=== PATIENT | male | born 1955 | race Caucasian/White ===

== ENCOUNTER 2022-02-22 17:35 | Inpatient (IN) | payer OTHER ==
[~2022-02-22] VITALS: Ht 180.3 cm; Wt 87.4 kg
[2022-02-22 19:56] LABS: Basophils # (auto) 0.1 10 ^3/uL (0-0.2); Basophils % (auto) 1.4 % (0.0-2.0); Eosinophils # (auto) 0.4 10 ^3/uL (0-0.8); Eosinophils % (auto) 8.3 % (0.0-7.0); Hematocrit 34.3 % (41.0-53.0); Hemoglobin 11.4 g/dL (13.5-17.5); Lymphocytes # (auto) 0.8 10 ^3/uL (0.4-5.4); Lymphocytes % (auto) 15.5 % (10.0-50.0); Mean Corpuscular Hgb Conc. 33.3 g/dL (32.0-36.0); Mean Corpuscular Volume 84.2 fL (80.0-100.0); Monocytes # (auto) 0.6 10 ^3/uL (0-1.3); Monocytes % (auto) 11.6 % (0.0-12.0); Neutrophils # (auto) 3.4 10 ^3/uL (1.6-8.6); Neutrophils % (auto) 63.2 % (37.0-80.0); Red Blood Cells 4.08 10^6/uL (4.5-5.90); Red Cell Distribution Width 17.1 % (11.8-14.3); White Blood Cell 5.3 10^3/uL (4.4-10.8)
[2022-02-22 20:12] LABS: Albumin 3.5 g/dL (3.4-5.0); Calcium 8.8 mg/dL (8.5-10.1); Potassium 3.4 mmol/L (3.5-5.1)
[2022-02-22 20:15] LABS: BUN/Creatinine Ratio 18.9; Bilirubin, Total 1.2 mg/dL (0.2-1.0); Total Protein 7.5 g/dL (6.4-8.2)
[2022-02-23] MEDS: HYDROcodone-ACET 10/325MG TAB PO PRN ×4 (02:34→23:20)
[2022-02-23 03:31] LABS: Basophils # (auto) 0.1 10 ^3/uL (0-0.2); Basophils % (auto) 1.5 % (0.0-2.0); Eosinophils # (auto) 0.3 10 ^3/uL (0-0.8); Eosinophils % (auto) 7.6 % (0.0-7.0); Hematocrit 29.5 % (41.0-53.0); Hemoglobin 10.2 g/dL (13.5-17.5); Lymphocytes # (auto) 0.8 10 ^3/uL (0.4-5.4); Lymphocytes % (auto) 19.4 % (10.0-50.0); Mean Corpuscular Hemoglobin 28.6 pg (28.0-32.0); Mean Corpuscular Hgb Conc. 34.5 g/dL (32.0-36.0); Mean Corpuscular Volume 82.9 fL (80.0-100.0); Monocytes # (auto) 0.6 10 ^3/uL (0-1.3); Monocytes % (auto) 13.1 % (0.0-12.0); Neutrophils # (auto) 2.5 10 ^3/uL (1.6-8.6); Neutrophils % (auto) 58.4 % (37.0-80.0); Nucleated Red Blood Cells % 0.1 %; Red Blood Cells 3.56 10^6/uL (4.5-5.90); Red Cell Distribution Width 17.1 % (11.8-14.3); White Blood Cell 4.2 10^3/uL (4.4-10.8)
[2022-02-23 03:47] LABS: Albumin 2.9 g/dL (3.4-5.0); BUN/Creatinine Ratio 18.9
[2022-02-23 03:50] LABS: Bilirubin, Total 1.2 mg/dL (0.2-1.0); Total Protein 6.4 g/dL (6.4-8.2)
[2022-02-23 03:54] LABS: Potassium 2.9 mmol/L (3.5-5.1)
[2022-02-23] MEDS ORDERED: POTASSIUM CHL 20 Meq TABLET PO ONE ×3 (05:00→12:45)
[2022-02-23] MEDS: ENOXAPARIN SOD 40 MG/0.4 ML SYRINGE SC SCH (10:20)
[2022-02-23] MEDS: PANTOPRAZOLE 40 MG/10 ML VIAL INJ IV SCH ×2 (11:58→23:20)
[2022-02-23 15:15] LABS: INR 1.23 (0.9-1.15); Partial Thromboplastin Time 28.9 sec (24.6-33.4)
[2022-02-23] MEDS ORDERED: HYDR12.56 PO (17:39)
[2022-02-23] MEDS ORDERED: LOSA25TA38 PO (17:40)
[2022-02-23] MEDS ORDERED: CARV3.1240 PO (17:40)
[2022-02-23] MEDS ORDERED: OMEP20TA PO (18:16)
[2022-02-23] MEDS: FUROSEMIDE 40 MG TAB PO SCH (18:18)
[2022-02-23 21:47] VITALS: BP 135/70
[2022-02-23] MEDS: POTASSIUM CHL 20 Meq TABLET PO SCH (23:21)
[2022-02-23] MEDS: CARVEDILOL 3.125 MG TAB PO SCH (23:21)
[2022-02-23 23:57] LABS: Urine Bacteria NONE SEEN /hpf (None Seen); Urine Blood Negative /uL (Negative); Urine Hyaline Cast FEW /lpf (0 - 2); Urine Mucus FEW (None Seen); Urine WBC 1 /hpf (0 - 3)
[2022-02-24 05:16] VITALS: BP 143/76
[2022-02-24] MEDS: FUROSEMIDE 40 MG TAB PO SCH ×3 (06:19→23:18)
[2022-02-24 06:25] LABS: Basophils # (auto) 0.1 10 ^3/uL (0-0.2); Basophils % (auto) 1.7 % (0.0-2.0); Eosinophils # (auto) 0.2 10 ^3/uL (0-0.8); Eosinophils % (auto) 7.5 % (0.0-7.0); Hemoglobin 10.1 g/dL (13.5-17.5); Lymphocytes # (auto) 0.7 10 ^3/uL (0.4-5.4); Lymphocytes % (auto) 19.8 % (10.0-50.0); Mean Corpuscular Hemoglobin 28.5 pg (28.0-32.0); Mean Corpuscular Hgb Conc. 33.7 g/dL (32.0-36.0); Mean Corpuscular Volume 84.4 fL (80.0-100.0); Monocytes # (auto) 0.5 10 ^3/uL (0-1.3); Neutrophils # (auto) 1.9 10 ^3/uL (1.6-8.6); Nucleated Red Blood Cells % 0.2 %; Red Blood Cells 3.56 10^6/uL (4.5-5.90); Red Cell Distribution Width 16.8 % (11.8-14.3); White Blood Cell 3.3 10^3/uL (4.4-10.8)
[2022-02-24 06:36] LABS: Albumin 2.8 g/dL (3.4-5.0); BUN/Creatinine Ratio 16.7; Calcium 8.3 mg/dL (8.5-10.1); Potassium 3.8 mmol/L (3.5-5.1)
[2022-02-24 06:42] LABS: Bilirubin, Total 0.8 mg/dL (0.2-1.0); Total Protein 6.4 g/dL (6.4-8.2)
[2022-02-24 08:38] VITALS: BP 123/76
[2022-02-24] MEDS: POTASSIUM CHL 20 Meq TABLET PO SCH ×2 (11:13→23:18)
[2022-02-24] MEDS: LOSARTAN POTASSIUM 25 MG TAB PO SCH (11:16)
[2022-02-24] MEDS: HYDROcodone-ACET 10/325MG TAB PO PRN (11:17)
[2022-02-24] MEDS: HCTZ 25 MG TAB PO SCH (11:18)
[2022-02-24] MEDS: CARVEDILOL 3.125 MG TAB PO SCH ×2 (11:19→23:19)
[2022-02-24] MEDS: PANTOPRAZOLE 40 MG/10 ML VIAL INJ IV SCH ×2 (11:20→23:19)
[2022-02-24] MEDS: ENOXAPARIN SOD 40 MG/0.4 ML SYRINGE SC SCH (11:20)
[2022-02-24] MEDS ORDERED: DEXTROSE (50%) 50ML SYRG IV PRN (12:15)
[2022-02-24 13:00] VITALS: BP 125/81
[2022-02-24] MEDS: InsuLIN REG 1unit/0.01ml Soln (100units/ml) SC SCH ×2 (17:00→23:24)
[2022-02-24 17:12] VITALS: BP 114/62
[2022-02-24] MEDS: ACCU-CHEK COMFORT CURVE STRIP VI SCH ×2 (17:12→23:17)
[2022-02-24] MEDS: ONDANSETRON HCL 4 MG/2 ML VIAL IV PRN (17:13)
[2022-02-24 21:48] VITALS: BP 129/68
[2022-02-25 05:00] VITALS: BP 119/67
[2022-02-25] MEDS: FUROSEMIDE 40 MG TAB PO SCH ×4 (06:50→22:39)
[2022-02-25 06:53] LABS: Basophils # (auto) 0.1 10 ^3/uL (0-0.2); Basophils % (auto) 1.1 % (0.0-2.0); Eosinophils # (auto) 0.4 10 ^3/uL (0-0.8); Eosinophils % (auto) 8.3 % (0.0-7.0); Hemoglobin 11.4 g/dL (13.5-17.5); Lymphocytes # (auto) 0.9 10 ^3/uL (0.4-5.4); Lymphocytes % (auto) 19.1 % (10.0-50.0); Mean Corpuscular Hemoglobin 28.4 pg (28.0-32.0); Mean Corpuscular Hgb Conc. 33.4 g/dL (32.0-36.0); Mean Corpuscular Volume 84.9 fL (80.0-100.0); Monocytes # (auto) 0.5 10 ^3/uL (0-1.3); Neutrophils # (auto) 2.7 10 ^3/uL (1.6-8.6); Neutrophils % (auto) 59.5 % (37.0-80.0); Nucleated Red Blood Cells % 0.1 %; Red Blood Cells 4.01 10^6/uL (4.5-5.90); Red Cell Distribution Width 17.3 % (11.8-14.3); White Blood Cell 4.5 10^3/uL (4.4-10.8)
[2022-02-25 07:04] LABS: Potassium 3.7 mmol/L (3.5-5.1)
[2022-02-25 07:05] LABS: Albumin 3.2 g/dL (3.4-5.0); Calcium 8.6 mg/dL (8.5-10.1)
[2022-02-25 07:12] LABS: BUN/Creatinine Ratio 17.7; Bilirubin, Total 1.2 mg/dL (0.2-1.0); Total Protein 7.1 g/dL (6.4-8.2)
[2022-02-25] MEDS: ACCU-CHEK COMFORT CURVE STRIP VI SCH ×4 (07:27→22:40)
[2022-02-25] MEDS: InsuLIN REG 1unit/0.01ml Soln (100units/ml) SC SCH ×4 (07:31→22:46)
[2022-02-25 09:37] VITALS: BP 140/75
[2022-02-25] MEDS: ENOXAPARIN SOD 40 MG/0.4 ML SYRINGE SC SCH (09:58)
[2022-02-25] MEDS: POTASSIUM CHL 20 Meq TABLET PO SCH ×2 (09:59→22:39)
[2022-02-25] MEDS: PANTOPRAZOLE 40 MG/10 ML VIAL INJ IV SCH ×2 (10:00→22:38)
[2022-02-25] MEDS: SPIRONOLACTONE 25 MG TAB PO SCH (10:00)
[2022-02-25] MEDS: HCTZ 25 MG TAB PO SCH (10:01)
[2022-02-25] MEDS: HYDROcodone-ACET 10/325MG TAB PO PRN ×2 (10:03→18:00)
[2022-02-25] MEDS: CARVEDILOL 3.125 MG TAB PO SCH ×2 (10:05→22:39)
[2022-02-25] MEDS: LOSARTAN POTASSIUM 25 MG TAB PO SCH (10:07)
[2022-02-25 13:35] VITALS: BP 133/71
[2022-02-25 16:37] VITALS: BP 123/65
[2022-02-25 22:00] VITALS: BP 111/75
[2022-02-25] MEDS: TEMAZEPAM 15 MG CAP PO PRN (22:47)
[2022-02-26 05:00] VITALS: BP 106/71
[2022-02-26] MEDS: FUROSEMIDE 40 MG TAB PO SCH ×3 (05:49→21:49)
[2022-02-26] MEDS: ACCU-CHEK COMFORT CURVE STRIP VI SCH ×4 (06:17→21:50)
[2022-02-26] MEDS: InsuLIN REG 1unit/0.01ml Soln (100units/ml) SC SCH ×4 (06:18→21:53)
[2022-02-26 06:20] LABS: Basophils # (auto) 0 10 ^3/uL (0-0.2); Basophils % (auto) 0.9 % (0.0-2.0); Eosinophils # (auto) 0.5 10 ^3/uL (0-0.8); Eosinophils % (auto) 9.1 % (0.0-7.0); Hematocrit 32.8 % (41.0-53.0); Hemoglobin 11.2 g/dL (13.5-17.5); Lymphocytes # (auto) 0.9 10 ^3/uL (0.4-5.4); Lymphocytes % (auto) 18.4 % (10.0-50.0); Mean Corpuscular Hemoglobin 28.7 pg (28.0-32.0); Mean Corpuscular Hgb Conc. 34.1 g/dL (32.0-36.0); Monocytes # (auto) 0.6 10 ^3/uL (0-1.3); Monocytes % (auto) 12.2 % (0.0-12.0); Neutrophils % (auto) 59.4 % (37.0-80.0); Red Blood Cells 3.91 10^6/uL (4.5-5.90); Red Cell Distribution Width 17.2 % (11.8-14.3); White Blood Cell 5.1 10^3/uL (4.4-10.8)
[2022-02-26 06:26] LABS: Potassium 3.7 mmol/L (3.5-5.1)
[2022-02-26 06:32] LABS: Albumin 2.9 g/dL (3.4-5.0); BUN/Creatinine Ratio 19.1; Bilirubin, Total 1.4 mg/dL (0.2-1.0); Calcium 8.4 mg/dL (8.5-10.1); Total Protein 6.6 g/dL (6.4-8.2)
[2022-02-26 08:30] VITALS: BP 122/65
[2022-02-26] MEDS ORDERED: FUROSEMIDE 40 MG TAB PO SCH (12:00)
[2022-02-26] MEDS: PANTOPRAZOLE 40 MG/10 ML VIAL INJ IV SCH ×2 (12:25→21:46)
[2022-02-26] MEDS: ENOXAPARIN SOD 40 MG/0.4 ML SYRINGE SC SCH (12:25)
[2022-02-26] MEDS: ONDANSETRON HCL 4 MG/2 ML VIAL IV PRN ×2 (12:25→21:51)
[2022-02-26] MEDS: POTASSIUM CHL 20 Meq TABLET PO SCH ×2 (12:25→21:48)
[2022-02-26] MEDS: HYDROcodone-ACET 10/325MG TAB PO PRN ×2 (12:26→21:51)
[2022-02-26] MEDS: LOSARTAN POTASSIUM 25 MG TAB PO SCH (12:28)
[2022-02-26] MEDS: SPIRONOLACTONE 25 MG TAB PO SCH (12:29)
[2022-02-26] MEDS: CARVEDILOL 3.125 MG TAB PO SCH ×2 (12:29→21:47)
[2022-02-26 12:30] VITALS: BP 118/69
[2022-02-26] MEDS: HCTZ 25 MG TAB PO SCH (12:30)
[2022-02-26 16:32] VITALS: BP 108/69
[2022-02-26 21:39] VITALS: BP 115/61
[2022-02-27] MEDS: TEMAZEPAM 15 MG CAP PO PRN ×2 (00:09→22:57)
[2022-02-27 04:31] VITALS: BP 128/68
[2022-02-27 05:53] LABS: Calcium 8.6 mg/dL (8.5-10.1); Potassium 3.9 mmol/L (3.5-5.1)
[2022-02-27 05:59] LABS: Albumin 2.7 g/dL (3.4-5.0); BUN/Creatinine Ratio 18.9; Bilirubin, Total 1.1 mg/dL (0.2-1.0); Total Protein 6.8 g/dL (6.4-8.2)
[2022-02-27] MEDS: ACCU-CHEK COMFORT CURVE STRIP VI SCH ×4 (06:31→22:56)
[2022-02-27] MEDS: InsuLIN REG 1unit/0.01ml Soln (100units/ml) SC SCH ×4 (06:33→22:57)
[2022-02-27 08:00] VITALS: BP 121/64
[2022-02-27 08:59] VITALS: BP 121/64
[2022-02-27] MEDS: POTASSIUM CHL 20 Meq TABLET PO SCH ×2 (09:22→22:55)
[2022-02-27] MEDS: PANTOPRAZOLE 40 MG/10 ML VIAL INJ IV SCH ×3 (09:22→22:54)
[2022-02-27] MEDS: ENOXAPARIN SOD 40 MG/0.4 ML SYRINGE SC SCH (09:22)
[2022-02-27] MEDS: HCTZ 25 MG TAB PO SCH (09:23)
[2022-02-27] MEDS: FUROSEMIDE 40 MG TAB PO SCH ×2 (09:23→22:55)
[2022-02-27] MEDS: CARVEDILOL 3.125 MG TAB PO SCH ×2 (09:24→22:54)
[2022-02-27] MEDS: SPIRONOLACTONE 25 MG TAB PO SCH (09:24)
[2022-02-27] MEDS: LOSARTAN POTASSIUM 25 MG TAB PO SCH (09:25)
[2022-02-27] MEDS: ONDANSETRON HCL 4 MG/2 ML VIAL IV PRN (09:25)
[2022-02-27] MEDS: HYDROcodone-ACET 10/325MG TAB PO PRN (11:42)
[2022-02-27 13:32] VITALS: BP 124/66
[2022-02-27 16:42] VITALS: BP 130/71
[2022-02-27 22:03] VITALS: BP 123/72
[2022-02-28 04:29] VITALS: BP 132/80
[2022-02-28] MEDS: ACCU-CHEK COMFORT CURVE STRIP VI SCH ×4 (06:41→21:31)
[2022-02-28] MEDS: InsuLIN REG 1unit/0.01ml Soln (100units/ml) SC SCH ×4 (06:43→21:46)
[2022-02-28] MEDS: HYDROcodone-ACET 10/325MG TAB PO PRN ×2 (07:00→21:20)
[2022-02-28 07:23] LABS: Potassium 4.3 mmol/L (3.5-5.1)
[2022-02-28 07:29] LABS: Albumin 3.1 g/dL (3.4-5.0); BUN/Creatinine Ratio 19.7; Bilirubin, Total 1.1 mg/dL (0.2-1.0); Total Protein 6.9 g/dL (6.4-8.2)
[2022-02-28] MEDS: POTASSIUM CHL 20 Meq TABLET PO SCH ×2 (08:44→21:18)
[2022-02-28] MEDS: PANTOPRAZOLE 40 MG/10 ML VIAL INJ IV SCH ×2 (08:44→21:17)
[2022-02-28] MEDS: HCTZ 25 MG TAB PO SCH (08:45)
[2022-02-28] MEDS: FUROSEMIDE 40 MG TAB PO SCH ×2 (08:45→21:19)
[2022-02-28] MEDS: ENOXAPARIN SOD 40 MG/0.4 ML SYRINGE SC SCH (08:46)
[2022-02-28] MEDS: SPIRONOLACTONE 25 MG TAB PO SCH (08:46)
[2022-02-28] MEDS: CARVEDILOL 3.125 MG TAB PO SCH ×2 (08:46→21:18)
[2022-02-28] MEDS: LOSARTAN POTASSIUM 25 MG TAB PO SCH (08:50)
[2022-02-28 09:14] VITALS: BP 105/69
[2022-02-28 12:46] VITALS: BP 119/69
[2022-02-28] MEDS: SODIUM CHLORIDE 0.9% 1,000 ML IV SCH (14:55)
[2022-02-28 16:54] VITALS: BP 121/73
[2022-02-28 21:59] VITALS: BP 109/65
[2022-03-01] MEDS: SODIUM CHLORIDE 0.9% 1,000 ML IV SCH ×3 (02:05→23:36)
[2022-03-01 04:57] VITALS: BP 140/64
[2022-03-01] MEDS: HYDROcodone-ACET 10/325MG TAB PO PRN ×3 (06:07→23:33)
[2022-03-01] MEDS: ACCU-CHEK COMFORT CURVE STRIP VI SCH ×4 (06:07→22:20)
[2022-03-01 06:46] LABS: BUN/Creatinine Ratio 19.7; Calcium 9.3 mg/dL (8.5-10.1); Potassium 4.2 mmol/L (3.5-5.1)
[2022-03-01] MEDS: InsuLIN REG 1unit/0.01ml Soln (100units/ml) SC SCH ×4 (06:54→22:45)
[2022-03-01 09:03] VITALS: BP 125/72
[2022-03-01] MEDS: PANTOPRAZOLE 40 MG/10 ML VIAL INJ IV SCH ×2 (10:22→22:45)
[2022-03-01] MEDS: POTASSIUM CHL 20 Meq TABLET PO SCH ×3 (10:22→22:45)
[2022-03-01] MEDS: SPIRONOLACTONE 25 MG TAB PO SCH (10:22)
[2022-03-01] MEDS: FUROSEMIDE 40 MG TAB PO SCH (10:23)
[2022-03-01] MEDS: HCTZ 25 MG TAB PO SCH (10:23)
[2022-03-01] MEDS: CARVEDILOL 3.125 MG TAB PO SCH ×2 (10:24→22:46)
[2022-03-01] MEDS: ENOXAPARIN SOD 30 MG/0.3 ML SYRINGE SC SCH (10:24)
[2022-03-01] MEDS: LOSARTAN POTASSIUM 25 MG TAB PO SCH (10:25)
[2022-03-01 14:18] VITALS: BP 126/72
[2022-03-01 16:09] VITALS: BP 124/68
[2022-03-01 22:00] VITALS: BP 114/65
[2022-03-02 05:00] VITALS: BP 117/68
[2022-03-02] MEDS ORDERED: FUROSEMIDE 20 MG TAB PO SCH (06:00)
[2022-03-02 06:23] LABS: BUN/Creatinine Ratio 20.5; Calcium 9.3 mg/dL (8.5-10.1); Potassium 4.4 mmol/L (3.5-5.1)
[2022-03-02] MEDS: ACCU-CHEK COMFORT CURVE STRIP VI SCH ×4 (06:36→21:27)
[2022-03-02] MEDS: InsuLIN REG 1unit/0.01ml Soln (100units/ml) SC SCH ×4 (06:40→22:05)
[2022-03-02] MEDS: SODIUM CHLORIDE 0.9% 1,000 ML IV SCH ×2 (07:45→17:45)
[2022-03-02 09:00] VITALS: BP 120/64
[2022-03-02] MEDS: POTASSIUM CHL 20 Meq TABLET PO SCH ×2 (09:34→13:00)
[2022-03-02] MEDS: CARVEDILOL 3.125 MG TAB PO SCH ×2 (09:37→22:12)
[2022-03-02] MEDS: PANTOPRAZOLE 40 MG/10 ML VIAL INJ IV SCH ×2 (09:37→21:52)
[2022-03-02] MEDS: ENOXAPARIN SOD 30 MG/0.3 ML SYRINGE SC SCH (09:38)
[2022-03-02] MEDS: LOSARTAN POTASSIUM 25 MG TAB PO SCH (09:50)
[2022-03-02] MEDS: HCTZ 25 MG TAB PO SCH (09:51)
[2022-03-02] MEDS ORDERED: SPIRONOLACTONE 25 MG TAB PO SCH (10:00)
[2022-03-02] MEDS: HYDROcodone-ACET 10/325MG TAB PO PRN ×3 (10:51→21:53)
[2022-03-02 13:00] VITALS: BP 120/57
[2022-03-02] MEDS: SPIRONOLACTONE 25 MG TAB PO SCH (13:00)
[2022-03-02] MEDS: FUROSEMIDE 20 MG TAB PO SCH (13:00)
[2022-03-02 16:49] VITALS: BP 128/66
[2022-03-03] MEDS: SODIUM CHLORIDE 0.9% 1,000 ML IV SCH ×3 (03:45→23:45)
[2022-03-03 05:50] LABS: Potassium 3.7 mmol/L (3.5-5.1)
[2022-03-03 05:54] VITALS: BP 99/63
[2022-03-03 05:59] LABS: Albumin 3.1 g/dL (3.4-5.0); BUN/Creatinine Ratio 24.4; Calcium 9.2 mg/dL (8.5-10.1)
[2022-03-03 06:01] LABS: Bilirubin, Total 0.8 mg/dL (0.2-1.0); Total Protein 7.6 g/dL (6.4-8.2)
[2022-03-03] MEDS: ACCU-CHEK COMFORT CURVE STRIP VI SCH ×4 (06:07→22:00)
[2022-03-03] MEDS: InsuLIN REG 1unit/0.01ml Soln (100units/ml) SC SCH ×4 (06:15→22:00)
[2022-03-03 09:00] VITALS: BP 121/58
[2022-03-03] MEDS: PANTOPRAZOLE 40 MG/10 ML VIAL INJ IV SCH ×2 (09:09→22:34)
[2022-03-03] MEDS: HYDROcodone-ACET 10/325MG TAB PO PRN ×2 (09:28→20:35)
[2022-03-03] MEDS: HCTZ 25 MG TAB PO SCH (09:32)
[2022-03-03] MEDS: SPIRONOLACTONE 25 MG TAB PO SCH (09:32)
[2022-03-03] MEDS: FUROSEMIDE 20 MG TAB PO SCH (09:33)
[2022-03-03] MEDS: CARVEDILOL 3.125 MG TAB PO SCH ×2 (09:37→22:35)
[2022-03-03] MEDS: LOSARTAN POTASSIUM 25 MG TAB PO SCH (10:00)
[2022-03-03] MEDS: POTASSIUM CHL 20 Meq TABLET PO SCH (10:00)
[2022-03-03] MEDS ORDERED: LACTULOSE 20Gm/30ML SOLN PO ONE (12:00)
[2022-03-03 13:00] VITALS: BP 119/65
[2022-03-03] MEDS: ENOXAPARIN SOD 30 MG/0.3 ML SYRINGE SC SCH (15:47)
[2022-03-03 17:00] VITALS: BP 117/72
[2022-03-03 20:00] VITALS: BP 121/58
[2022-03-03 22:00] VITALS: BP 125/62
[2022-03-04 05:00] VITALS: BP 138/67
[2022-03-04] MEDS: InsuLIN REG 1unit/0.01ml Soln (100units/ml) SC SCH ×4 (06:14→21:51)
[2022-03-04] MEDS: ACCU-CHEK COMFORT CURVE STRIP VI SCH ×4 (06:18→21:40)
[2022-03-04] MEDS: HYDROcodone-ACET 10/325MG TAB PO PRN ×3 (06:19→18:44)
[2022-03-04 08:13] LABS: Albumin 3.1 g/dL (3.4-5.0); Potassium 3.8 mmol/L (3.5-5.1)
[2022-03-04 08:19] LABS: BUN/Creatinine Ratio 24.7; Bilirubin, Total 0.9 mg/dL (0.2-1.0); Total Protein 7.4 g/dL (6.4-8.2)
[2022-03-04 09:00] VITALS: BP 124/70
[2022-03-04] MEDS: SODIUM CHLORIDE 0.9% 1,000 ML IV SCH ×2 (09:45→19:45)
[2022-03-04] MEDS: LACTULOSE 20Gm/30ML SOLN PO SCH (09:45)
[2022-03-04] MEDS: PANTOPRAZOLE 40 MG/10 ML VIAL INJ IV SCH ×2 (09:45→21:40)
[2022-03-04] MEDS: CARVEDILOL 3.125 MG TAB PO SCH ×2 (09:47→21:41)
[2022-03-04] MEDS: LOSARTAN POTASSIUM 25 MG TAB PO SCH (09:47)
[2022-03-04] MEDS: FUROSEMIDE 20 MG TAB PO SCH (09:48)
[2022-03-04] MEDS: POTASSIUM CHL 20 Meq TABLET PO SCH (09:48)
[2022-03-04] MEDS: SPIRONOLACTONE 25 MG TAB PO SCH (09:48)
[2022-03-04] MEDS: ENOXAPARIN SOD 30 MG/0.3 ML SYRINGE SC SCH (09:48)
[2022-03-04 13:00] VITALS: BP 113/67
[2022-03-04 16:45] VITALS: BP 101/62
[2022-03-04] MEDS: TEMAZEPAM 15 MG CAP PO PRN (21:41)
[2022-03-04 22:00] VITALS: BP 105/65
[2022-03-05 05:00] VITALS: BP 115/70
[2022-03-05 05:33] LABS: Albumin 2.9 g/dL (3.4-5.0); Calcium 8.7 mg/dL (8.5-10.1); Potassium 3.5 mmol/L (3.5-5.1)
[2022-03-05 05:40] LABS: BUN/Creatinine Ratio 22.8; Total Protein 7.2 g/dL (6.4-8.2)
[2022-03-05] MEDS: ACCU-CHEK COMFORT CURVE STRIP VI SCH (06:31)
[2022-03-05] MEDS: HYDROcodone-ACET 10/325MG TAB PO PRN ×2 (06:32→11:23)
[2022-03-05] MEDS: SODIUM CHLORIDE 0.9% 1,000 ML IV SCH (06:36)
[2022-03-05] MEDS: InsuLIN REG 1unit/0.01ml Soln (100units/ml) SC SCH (06:36)
[2022-03-05 09:00] VITALS: BP 132/72
[2022-03-05] MEDS: LACTULOSE 20Gm/30ML SOLN PO SCH (09:19)
[2022-03-05] MEDS: PANTOPRAZOLE 40 MG/10 ML VIAL INJ IV SCH (09:19)
[2022-03-05] MEDS: SPIRONOLACTONE 25 MG TAB PO SCH (09:20)
[2022-03-05] MEDS: CARVEDILOL 3.125 MG TAB PO SCH (09:21)
[2022-03-05] MEDS: FUROSEMIDE 20 MG TAB PO SCH (09:21)
[2022-03-05] MEDS: LOSARTAN POTASSIUM 25 MG TAB PO SCH (09:22)
[2022-03-05] MEDS ORDERED: SPIR25TA PO (09:53)
[2022-03-05] MEDS ORDERED: FUR20T PO (09:53)
[2022-03-05] MEDS ORDERED: LACT10SO3 PO (09:53)
[2022-03-05] MEDS ORDERED: POTA-167 PO (09:53)
[2022-03-05] MEDS ORDERED: ENOXAPARIN SOD 40 MG/0.4 ML SYRINGE SC SCH (10:00)
[2022-03-05] MEDS ORDERED: POTASSIUM CHL 10 Meq TABLET PO SCH (10:00)
[2022-03-05 10:57] VITALS: BP 132/72
== END 2022-03-05 13:30 | DRG 433 ==
LOC: ER 17:35 → EEVIPCON 17:35 → OVERFLOW 21:53 → CENTRAL 02-23 15:40
PROVIDERS: ADMIT Internal Medicine; ATTEND Internal Medicine
PROC: 0W9G3ZX Drainage of Peritoneal Cavity, Percutaneous Approach, Diagnostic (ICD-10-PCS; principal; 2022-02-23)
DX: K74.60 Unspecified cirrhosis of liver (principal); N17.9 Acute kidney failure, unspecified; R18.8 Other ascites; K57.30 Diverticulosis of large intestine without perforation or abscess without bleeding; E11.9 Type 2 diabetes mellitus without complications; K72.10 Chronic hepatic failure without coma; I10 Essential (primary) hypertension; E86.0 Dehydration; K59.00 Constipation, unspecified; Z20.822 Contact with and (suspected) exposure to COVID-19; Z79.899 Other long term (current) drug therapy
CPT/HCPCS: 36415; 71045; 71046; 74176; 76705; 76942; 80048; 80053; 81001; 82140; 82962; 83605; 83690; 84484; 85025; 85610; 85730; 87205; 87426; 89051; C9113; G0378; J1815; J2405

== ENCOUNTER 2022-04-07 19:39 | Inpatient (IN) | payer OTHER ==
[2022-04-06] MEDS: OCTREOTIDE ACETATE 500 MCG in SODIUM CHL 0.9% 99 ML IV SCH (23:45)
[~2022-04-07] VITALS: Ht 188 cm; Wt 118.0 kg
[~2022-04-07 19:39] MED LIST: CARV3.1240 PO; FUR20T PO; HYDR12.56 PO; LACT10SO3 PO; LOSA25TA38 PO; OMEP20TA PO; POTA-167 PO; SPIR25TA PO
[2022-04-07] MEDS ORDERED: ONDANSETRON HCL 4 MG/2 ML VIAL IV ONE (20:30)
[2022-04-07] MEDS ORDERED: OCTREOTIDE ACETATE 100 MCG in SODIUM CHL 0.9% 50 ML IV ONE (20:45)
[2022-04-07] MEDS ORDERED: PANTOPRAZOLE 40mg/50ML NS AE 50 ML IV ONE (20:45)
[2022-04-07] MEDS ORDERED: PANTOPRAZOLE 80 MG in SODIUM CHL 0.9% 100 ML IV ONE (20:45)
[2022-04-07] MEDS ORDERED: IOHEXOL 350 MG/ML 100ML IJ ONE (22:28)
[2022-04-07 22:38] LABS: Basophils # (auto) 0 10 ^3/uL (0-0.2); Eosinophils # (auto) 0.1 10 ^3/uL (0-0.8); Lymphocytes # (auto) 0.7 10 ^3/uL (0.4-5.4); Monocytes # (auto) 0.6 10 ^3/uL (0-1.3); Nucleated Red Blood Cells % 0.1 %; White Blood Cell 7.5 10^3/uL (4.4-10.8)
[2022-04-07 22:40] LABS: Basophils % (auto) 0.3 % (0.0-2.0); Eosinophils % (auto) 1.1 % (0.0-7.0); Hematocrit 22.6 % (41.0-53.0); Hemoglobin 7.6 g/dL (13.5-17.5); Lymphocytes % (auto) 9.8 % (10.0-50.0); Mean Corpuscular Hemoglobin 29.1 pg (28.0-32.0); Mean Corpuscular Hgb Conc. 33.5 g/dL (32.0-36.0); Mean Corpuscular Volume 86.9 fL (80.0-100.0); Monocytes % (auto) 7.9 % (0.0-12.0); Neutrophils % (auto) 80.9 % (37.0-80.0); Red Blood Cells 2.61 10^6/uL (4.5-5.90); Red Cell Distribution Width 17.3 % (11.8-14.3)
[2022-04-07] MEDS ORDERED: OCTREOTIDE ACETATE 500 MCG/ML VL ONE (22:57)
[2022-04-07] MEDS ORDERED: OCTREOTIDE ACETATE 100 MCG/ML VL ONE (22:58)
[2022-04-07 23:03] LABS: Albumin 2.5 g/dL (3.4-5.0); Calcium 8.4 mg/dL (8.5-10.1); Potassium 5.5 mmol/L (3.5-5.1)
[2022-04-07 23:06] LABS: BUN/Creatinine Ratio 25.8; Bilirubin, Total 0.6 mg/dL (0.2-1.0); Total Protein 6.3 g/dL (6.4-8.2)
[2022-04-07] MEDS ORDERED: PANTOPRAZOLE 40 MG/10 ML VIAL INJ IV ONE (23:08)
[2022-04-07 23:10] VITALS: BP 90/45
[2022-04-07] MEDS: OCTREOTIDE ACETATE 500 MCG in SODIUM CHL 0.9% 99 ML IV SCH (23:10)
[2022-04-07 23:25] VITALS: BP 114/56
[2022-04-07 23:30] VITALS: BP 112/46
[2022-04-07] MEDS ORDERED: fentaNYL Drip 2500mCg/250mlNS 250 ML IV ONE (23:39)
[2022-04-07 23:40] VITALS: BP 110/44
[2022-04-07] MEDS ORDERED: ROCURONIUM 10MG/ML 10ML VIAL IV ONE (23:40)
[2022-04-07] MEDS ORDERED: ETOMIDATE (2MG/ML) 20ML VIAL IV ONE (23:40)
[2022-04-07 23:50] VITALS: BP 108/66
[2022-04-07 23:53] LABS: INR 1.21 (0.9-1.15); Partial Thromboplastin Time 25.4 sec (24.6-33.4)
[2022-04-07 23:55] VITALS: BP 123/78
[2022-04-08] VITALS (17 sets, daily range): BP systolic 92–123; BP diastolic 50–78
[2022-04-08] MEDS ORDERED: ETOMIDATE (2MG/ML) 20ML VIAL IV ONE
[2022-04-08] MEDS ORDERED: ROCURONIUM 10MG/ML 10ML VIAL IV ONE
[2022-04-08] MEDS: fentaNYL Drip 2500mCg/250mlNS 250 ML IV SCH (00:44)
[2022-04-08 01:10] LABS: Urine Specific Gravity 1.017 (1.001-1.035)
[2022-04-08 01:11] LABS: Urine Blood 0.03 /uL (Negative)
[2022-04-08] MEDS ORDERED: cefTRIAXone 1GM/50ML D5W 50 ML IV ONE (05:30)
[2022-04-08] MEDS ORDERED: VASOPRESSIN 20 UNIT/ML ONE ×2 (05:58→06:08)
[2022-04-08] MEDS: VASOPRESSIN 50 UNITS in D5W 5% 247.5 ML IV SCH ×4 (06:18→19:13)
[2022-04-08] MEDS ORDERED: NITROGLYCERIN 0.4 MG SL TAB SL PRN (07:00)
[2022-04-08] MEDS ORDERED: MORPHINE SULFATE INJ 2 MG/ml SYRG IV PRN (07:00)
[2022-04-08 07:49] LABS: Basophils # (auto) 0 10 ^3/uL (0-0.2); Basophils % (auto) 0.1 % (0.0-2.0); Eosinophils # (auto) 0 10 ^3/uL (0-0.8); Eosinophils % (auto) 0.1 % (0.0-7.0); Hematocrit 29.7 % (41.0-53.0); Hemoglobin 9.5 g/dL (13.5-17.5); Lymphocytes # (auto) 0.6 10 ^3/uL (0.4-5.4); Lymphocytes % (auto) 4.5 % (10.0-50.0); Mean Corpuscular Hemoglobin 27.7 pg (28.0-32.0); Mean Corpuscular Hgb Conc. 32.1 g/dL (32.0-36.0); Mean Corpuscular Volume 86.5 fL (80.0-100.0); Monocytes # (auto) 1.8 10 ^3/uL (0-1.3); Monocytes % (auto) 13.3 % (0.0-12.0); Red Blood Cells 3.43 10^6/uL (4.5-5.90); Red Cell Distribution Width 18.3 % (11.8-14.3); White Blood Cell 13.4 10^3/uL (4.4-10.8)
[2022-04-08] MEDS: PANTOPRAZOLE 40mg/50ML NS AE 50 ML IV SCH ×2 (07:50→12:03)
[2022-04-08] MEDS: SODIUM CHLORIDE 0.9% 1,000 ML IV SCH ×2 (07:50→13:47)
[2022-04-08] MEDS: OCTREOTIDE ACETATE 500 MCG in SODIUM CHL 0.9% 99 ML IV SCH ×2 (07:50→17:08)
[2022-04-08] MEDS: PROPOFOL 100 ML IV SCH ×2 (08:30→20:43)
[2022-04-08 12:12] LABS: Basophils # (auto) 0 10 ^3/uL (0-0.2); Basophils % (auto) 0.2 % (0.0-2.0); Eosinophils # (auto) 0 10 ^3/uL (0-0.8); Eosinophils % (auto) 0.1 % (0.0-7.0); Hematocrit 27.3 % (41.0-53.0); Hemoglobin 8.8 g/dL (13.5-17.5); Lymphocytes # (auto) 0.9 10 ^3/uL (0.4-5.4); Lymphocytes % (auto) 7.1 % (10.0-50.0); Mean Corpuscular Hemoglobin 27.8 pg (28.0-32.0); Mean Corpuscular Hgb Conc. 32.2 g/dL (32.0-36.0); Mean Corpuscular Volume 86.3 fL (80.0-100.0); Monocytes # (auto) 1.7 10 ^3/uL (0-1.3); Monocytes % (auto) 13.7 % (0.0-12.0); Neutrophils # (auto) 9.8 10 ^3/uL (1.6-8.6); Neutrophils % (auto) 78.9 % (37.0-80.0); Red Blood Cells 3.17 10^6/uL (4.5-5.90); Red Cell Distribution Width 17.7 % (11.8-14.3); White Blood Cell 12.4 10^3/uL (4.4-10.8)
[2022-04-08 16:09] LABS: Eosinophils # (auto) 0 10 ^3/uL (0-0.8); Eosinophils % (auto) 0.1 % (0.0-7.0); Mean Corpuscular Hemoglobin 27.8 pg (28.0-32.0); Monocytes # (auto) 1.8 10 ^3/uL (0-1.3); Red Cell Distribution Width 18.1 % (11.8-14.3)
[2022-04-08 16:11] LABS: Basophils # (auto) 0 10 ^3/uL (0-0.2); Basophils % (auto) 0.3 % (0.0-2.0); Hematocrit 24.3 % (41.0-53.0); Hemoglobin 7.9 g/dL (13.5-17.5); Lymphocytes # (auto) 0.9 10 ^3/uL (0.4-5.4); Lymphocytes % (auto) 6.7 % (10.0-50.0); Mean Corpuscular Hgb Conc. 32.4 g/dL (32.0-36.0); Mean Corpuscular Volume 85.7 fL (80.0-100.0); Neutrophils % (auto) 78.9 % (37.0-80.0); Red Blood Cells 2.84 10^6/uL (4.5-5.90); White Blood Cell 12.7 10^3/uL (4.4-10.8)
[2022-04-08] MEDS: NOREPINEPHRINE 8 MG/250ML KIT 250 ML IV SCH (17:30)
[2022-04-08] MEDS: PANTOPRAZOLE 40 MG/10 ML VIAL INJ IV SCH (22:22)
[2022-04-09] VITALS (99 sets, daily range): BP systolic 83–118; BP diastolic 45–69
[2022-04-09] MEDS: OCTREOTIDE ACETATE 500 MCG in SODIUM CHL 0.9% 99 ML IV SCH ×2 (03:00→15:31)
[2022-04-09] MEDS ORDERED: OCTREOTIDE ACETATE 100 MCG/ML VL ONE (05:33)
[2022-04-09 07:14] LABS: Basophils # (auto) 0 10 ^3/uL (0-0.2); Basophils % (auto) 0.1 % (0.0-2.0); Eosinophils # (auto) 0 10 ^3/uL (0-0.8); Eosinophils % (auto) 0.1 % (0.0-7.0); Hematocrit 25.8 % (41.0-53.0); Hemoglobin 8.5 g/dL (13.5-17.5); Lymphocytes # (auto) 1.1 10 ^3/uL (0.4-5.4); Lymphocytes % (auto) 6.8 % (10.0-50.0); Mean Corpuscular Hemoglobin 28.1 pg (28.0-32.0); Mean Corpuscular Hgb Conc. 32.7 g/dL (32.0-36.0); Mean Corpuscular Volume 85.8 fL (80.0-100.0); Monocytes # (auto) 2.3 10 ^3/uL (0-1.3); Monocytes % (auto) 14.2 % (0.0-12.0); Neutrophils # (auto) 13.1 10 ^3/uL (1.6-8.6); Neutrophils % (auto) 78.8 % (37.0-80.0); Red Blood Cells 3.01 10^6/uL (4.5-5.90); White Blood Cell 16.6 10^3/uL (4.4-10.8)
[2022-04-09 07:30] LABS: Albumin 2.6 g/dL (3.4-5.0)
[2022-04-09 07:36] LABS: BUN/Creatinine Ratio 24.4; Bilirubin, Total 0.7 mg/dL (0.2-1.0); Total Protein 6.4 g/dL (6.4-8.2)
[2022-04-09 08:04] LABS: Potassium 6.9 mmol/L (3.5-5.1)
[2022-04-09] MEDS ORDERED: SODIUM BICARBONATE 8.4 % INJ 50ML VIAL IV ONE (08:12)
[2022-04-09] MEDS ORDERED: InsuLIN REG 1unit/0.01ml Soln (100units/ml) IV ONE (08:45)
[2022-04-09] MEDS ORDERED: ALBUTEROL SULF 2.5 MG/0.5ML(0.5%) NEB SOLN NEB ONE (08:45)
[2022-04-09] MEDS ORDERED: FUROSEMIDE 20 MG/2 ML VIAL IV ONE (08:45)
[2022-04-09] MEDS ORDERED: DEXTROSE (50%) 50ML SYRG IV ONE (08:45)
[2022-04-09] MEDS ORDERED: ALBUTEROL MEDNEB 2.5 mg/3ml NEB ONE (08:45)
[2022-04-09] MEDS ORDERED: CALCIUM GLUC 1,000mg/50ml-NS 50 ML IV ONE (08:45)
[2022-04-09] MEDS ORDERED: DEXTROSE (50%) 50ML SYRG IV PRN (09:30)
[2022-04-09] MEDS: SODIUM BICARBONATE 50ML VIAL 50 ML in SOD CHL 0.45% 1,000 ML IV SCH ×2 (10:00→18:24)
[2022-04-09] MEDS: PANTOPRAZOLE 40 MG/10 ML VIAL INJ IV SCH ×2 (10:05→21:40)
[2022-04-09 11:04] LABS: Potassium 5.2 mmol/L (3.5-5.1)
[2022-04-09 11:09] LABS: Albumin 2.4 g/dL (3.4-5.0); BUN/Creatinine Ratio 23.9; Calcium 8.2 mg/dL (8.5-10.1)
[2022-04-09 11:12] LABS: Bilirubin, Total 0.6 mg/dL (0.2-1.0); Phosphorus 6.9 mg/dL (2.5-4.90); Total Protein 5.8 g/dL (6.4-8.2)
[2022-04-09] MEDS: InsuLIN REG 1unit/0.01ml Soln (100units/ml) SC SCH ×2 (12:00→18:29)
[2022-04-09] MEDS: ACCU-CHEK COMFORT CURVE STRIP VI SCH ×2 (12:00→18:00)
[2022-04-09] MEDS: BUMETANIDE 2.5mg/10ml (0.25 mg/ml) INJ IV SCH ×2 (12:23→18:00)
[2022-04-09] MEDS ORDERED: LACTULOSE 10g/15ml SOLN 473ML PR ONE (12:45)
[2022-04-09] MEDS ORDERED: VANCOMYCIN PER PHARMACY 0 MG IV SCH (13:00)
[2022-04-09] MEDS: SODIUM ZIRCONIUM CYCL 10 GM PAK PO SCH ×2 (14:00→22:00)
[2022-04-09] MEDS ORDERED: PIPERACILLIN-TAZOB 3.375GM 100 ML IV SCH (14:00)
[2022-04-09] MEDS: PROPOFOL 100 ML IV SCH (14:16)
[2022-04-09] MEDS: PIPERACILLIN-TAZOB 2.25GM 50 ML IV SCH ×2 (15:31→22:04)
[2022-04-09] MEDS: fentaNYL Drip 2500mCg/250mlNS 250 ML IV SCH (15:45)
[2022-04-09] MEDS: LACTULOSE 10g/15ml SOLN 473ML PR SCH (16:35)
[2022-04-09] MEDS: NOREPINEPHRINE 8 MG/250ML KIT 250 ML IV SCH (17:34)
[2022-04-09 19:01] LABS: Hemoglobin 8.3 g/dL (13.5-17.5)
[2022-04-09 19:03] LABS: Hematocrit 25.4 % (41.0-53.0)
[2022-04-09] MEDS: LINEZOLID 600MG/300ML 300 ML IV SCH (19:29)
[2022-04-09] MEDS ORDERED: VANCOMYCIN 1GM/250ML 250 ML IV SCH (22:00)
[2022-04-10] VITALS (100 sets, daily range): BP systolic 94–128; BP diastolic 54–71
[2022-04-10] MEDS: SODIUM ZIRCONIUM CYCL 10 GM PAK PO SCH ×2 (06:00→14:00)
[2022-04-10] MEDS: ACCU-CHEK COMFORT CURVE STRIP VI SCH ×4 (06:00→18:00)
[2022-04-10] MEDS: LACTULOSE 10g/15ml SOLN 473ML PR SCH ×5 (06:00→23:53)
[2022-04-10] MEDS: LINEZOLID 600MG/300ML 300 ML IV SCH ×2 (06:00→18:44)
[2022-04-10] MEDS: SODIUM BICARBONATE 50ML VIAL 50 ML in SOD CHL 0.45% 1,000 ML IV SCH ×3 (06:14→21:19)
[2022-04-10 06:24] LABS: Basophils # (auto) 0 10 ^3/uL (0-0.2); Eosinophils # (auto) 0 10 ^3/uL (0-0.8); Monocytes # (auto) 1.8 10 ^3/uL (0-1.3)
[2022-04-10 06:26] LABS: Basophils % (auto) 0.2 % (0.0-2.0); Eosinophils % (auto) 0.1 % (0.0-7.0); Hematocrit 23.6 % (41.0-53.0); Hemoglobin 7.8 g/dL (13.5-17.5); Lymphocytes # (auto) 0.9 10 ^3/uL (0.4-5.4); Lymphocytes % (auto) 7.8 % (10.0-50.0); Mean Corpuscular Hemoglobin 27.8 pg (28.0-32.0); Mean Corpuscular Volume 84.4 fL (80.0-100.0); Monocytes % (auto) 15.1 % (0.0-12.0); Neutrophils # (auto) 9.2 10 ^3/uL (1.6-8.6); Neutrophils % (auto) 76.8 % (37.0-80.0); Nucleated Red Blood Cells % 0.2 %; Red Blood Cells 2.79 10^6/uL (4.5-5.90)
[2022-04-10 06:39] LABS: Albumin 2.5 g/dL (3.4-5.0); Calcium 7.5 mg/dL (8.5-10.1); Potassium 5.1 mmol/L (3.5-5.1)
[2022-04-10 06:45] LABS: BUN/Creatinine Ratio 24.5; Bilirubin, Total 0.7 mg/dL (0.2-1.0)
[2022-04-10] MEDS: InsuLIN REG 1unit/0.01ml Soln (100units/ml) SC SCH ×4 (07:00→18:00)
[2022-04-10] MEDS: BUMETANIDE 2.5mg/10ml (0.25 mg/ml) INJ IV SCH ×2 (07:00→18:00)
[2022-04-10] MEDS: PIPERACILLIN-TAZOB 2.25GM 50 ML IV SCH ×3 (07:00→21:49)
[2022-04-10] MEDS: PANTOPRAZOLE 40 MG/10 ML VIAL INJ IV SCH ×2 (10:42→21:49)
[2022-04-10] MEDS: OCTREOTIDE ACETATE 500 MCG in SODIUM CHL 0.9% 99 ML IV SCH ×4 (11:24→20:00)
[2022-04-10] MEDS ORDERED: FUROSEMIDE 20 MG/2 ML VIAL IV ONE (13:15)
[2022-04-10] MEDS: PROPOFOL 100 ML IV SCH (13:57)
[2022-04-10] MEDS: fentaNYL Drip 2500mCg/250mlNS 250 ML IV SCH ×2 (15:52)
[2022-04-10] MEDS: DOPamine 1600MCG/ML D5W 250 ML IV SCH (16:36)
[2022-04-10] MEDS: NOREPINEPHRINE 8 MG/250ML KIT 250 ML IV SCH (17:30)
[2022-04-10] MEDS ORDERED: SODIUM BICARBONATE 8.4% INJ 50ML SYRINGE ONE (21:08)
[2022-04-10] MEDS: CALCIUM ACETATE 667 MG CAP PO SCH (21:50)
[2022-04-11] VITALS (104 sets, daily range): BP systolic 80–109; BP diastolic 50–65
[2022-04-11] MEDS: SODIUM BICARBONATE 50ML VIAL 50 ML in SOD CHL 0.45% 1,000 ML IV SCH ×3 (05:00→21:36)
[2022-04-11 05:27] LABS: Basophils # (auto) 0 10 ^3/uL (0-0.2); Eosinophils # (auto) 0.1 10 ^3/uL (0-0.8); Hemoglobin 8.4 g/dL (13.5-17.5); Neutrophils # (auto) 10.5 10 ^3/uL (1.6-8.6)
[2022-04-11 05:30] LABS: Basophils % (auto) 0.2 % (0.0-2.0); Eosinophils % (auto) 0.9 % (0.0-7.0); Hematocrit 25.5 % (41.0-53.0); Lymphocytes # (auto) 1.3 10 ^3/uL (0.4-5.4); Lymphocytes % (auto) 9.1 % (10.0-50.0); Mean Corpuscular Hemoglobin 27.8 pg (28.0-32.0); Mean Corpuscular Hgb Conc. 32.7 g/dL (32.0-36.0); Mean Corpuscular Volume 84.9 fL (80.0-100.0); Monocytes % (auto) 14.1 % (0.0-12.0); Neutrophils % (auto) 75.7 % (37.0-80.0); Nucleated Red Blood Cells % 0.3 %; Red Blood Cells 3.01 10^6/uL (4.5-5.90); Red Cell Distribution Width 17.8 % (11.8-14.3); White Blood Cell 13.9 10^3/uL (4.4-10.8)
[2022-04-11 05:53] LABS: Calcium 7.6 mg/dL (8.5-10.1); Potassium 4.8 mmol/L (3.5-5.1)
[2022-04-11] MEDS: LACTULOSE 10g/15ml SOLN 473ML PR SCH ×3 (05:53→18:00)
[2022-04-11] MEDS: BUMETANIDE 2.5mg/10ml (0.25 mg/ml) INJ IV SCH ×2 (05:53→18:00)
[2022-04-11] MEDS: CALCIUM ACETATE 667 MG CAP PO SCH ×3 (05:53→21:36)
[2022-04-11] MEDS: LINEZOLID 600MG/300ML 300 ML IV SCH ×2 (05:53→18:00)
[2022-04-11 05:57] LABS: Albumin 2.4 g/dL (3.4-5.0); BUN/Creatinine Ratio 27.6
[2022-04-11 05:59] LABS: Bilirubin, Total 0.7 mg/dL (0.2-1.0); Total Protein 5.8 g/dL (6.4-8.2)
[2022-04-11] MEDS: InsuLIN REG 1unit/0.01ml Soln (100units/ml) SC SCH ×4 (06:00→18:00)
[2022-04-11] MEDS: ACCU-CHEK COMFORT CURVE STRIP VI SCH ×4 (06:00→18:00)
[2022-04-11] MEDS: OCTREOTIDE ACETATE 500 MCG in SODIUM CHL 0.9% 99 ML IV SCH ×3 (06:00→18:16)
[2022-04-11] MEDS: PIPERACILLIN-TAZOB 2.25GM 50 ML IV SCH ×3 (07:00→21:38)
[2022-04-11] MEDS ORDERED: SODIUM BICARBONATE 8.4% INJ 50ML SYRINGE ONE (07:34)
[2022-04-11] MEDS: PANTOPRAZOLE 40 MG/10 ML VIAL INJ IV SCH ×2 (10:44→21:38)
[2022-04-11] MEDS: DOPamine 1600MCG/ML D5W 250 ML IV SCH (14:23)
[2022-04-11] MEDS: PROPOFOL 100 ML IV SCH (14:35)
[2022-04-11] MEDS: fentaNYL Drip 2500mCg/250mlNS 250 ML IV SCH (16:12)
[2022-04-11] MEDS ORDERED: FUROSEMIDE 40 MG/4 ML VIAL IV ONE (17:30)
[2022-04-12] VITALS (88 sets, daily range): BP systolic 90–116; BP diastolic 46–63
[2022-04-12] MEDS: ACCU-CHEK COMFORT CURVE STRIP VI SCH ×4 (00:12→17:47)
[2022-04-12] MEDS: LACTULOSE 10g/15ml SOLN 473ML PR SCH ×4 (00:12→17:46)
[2022-04-12] MEDS: InsuLIN REG 1unit/0.01ml Soln (100units/ml) SC SCH ×4 (00:26→18:17)
[2022-04-12] MEDS: PROPOFOL 100 ML IV SCH ×3 (01:54→23:46)
[2022-04-12] MEDS: OCTREOTIDE ACETATE 500 MCG in SODIUM CHL 0.9% 99 ML IV SCH ×2 (04:11→10:16)
[2022-04-12] MEDS: fentaNYL Drip 2500mCg/250mlNS 250 ML IV SCH ×2 (04:42→16:02)
[2022-04-12 05:50] LABS: Albumin 2.2 g/dL (3.4-5.0); Calcium 7.8 mg/dL (8.5-10.1); Potassium 4.2 mmol/L (3.5-5.1)
[2022-04-12] MEDS: LINEZOLID 600MG/300ML 300 ML IV SCH ×2 (05:50→18:17)
[2022-04-12 05:53] LABS: BUN/Creatinine Ratio 30.5
[2022-04-12] MEDS: SODIUM BICARBONATE 50ML VIAL 50 ML in SOD CHL 0.45% 1,000 ML IV SCH ×2 (05:53→16:01)
[2022-04-12 05:54] LABS: Bilirubin, Total 0.9 mg/dL (0.2-1.0); Total Protein 5.9 g/dL (6.4-8.2)
[2022-04-12] MEDS: CALCIUM ACETATE 667 MG CAP PO SCH ×3 (05:54→21:14)
[2022-04-12] MEDS: BUMETANIDE 2.5mg/10ml (0.25 mg/ml) INJ IV SCH ×2 (05:54→18:18)
[2022-04-12 06:37] LABS: Hemoglobin 8.2 g/dL (13.5-17.5); Mean Corpuscular Volume 84.2 fL (80.0-100.0); Red Blood Cells 2.87 10^6/uL (4.5-5.90); Red Cell Distribution Width 17.6 % (11.8-14.3); White Blood Cell 10.2 10^3/uL (4.4-10.8)
[2022-04-12 06:39] LABS: Hematocrit 24.2 % (41.0-53.0); Mean Corpuscular Hemoglobin 28.5 pg (28.0-32.0); Mean Corpuscular Hgb Conc. 33.8 g/dL (32.0-36.0)
[2022-04-12 06:43] LABS: Band Neutrophils % (manual) 0; Basophils % (manual) 0 (0.0-2.0); Blast Cells 0; Eosinophils % (manual) 0 (0-7); Metamyelocytes % 0; Promyelocytes % 0; Reactive Lymphocytes 0
[2022-04-12] MEDS: PIPERACILLIN-TAZOB 2.25GM 50 ML IV SCH ×3 (07:43→21:15)
[2022-04-12 09:42] LABS: Lymphocytes % (manual) 11 (10.0-50.0); Monocytes % (manual) 7 (0-12); Myelocytes % 1
[2022-04-12] MEDS: NOREPINEPHRINE 8 MG/250ML KIT 250 ML IV SCH ×2 (09:49→10:17)
[2022-04-12] MEDS: PANTOPRAZOLE 40 MG/10 ML VIAL INJ IV SCH ×2 (10:10→21:15)
[2022-04-12] MEDS ORDERED: FUROSEMIDE 20 MG/2 ML VIAL IV ONE (12:15)
[2022-04-12] MEDS: DOPamine 1600MCG/ML D5W 250 ML IV SCH (14:45)
[2022-04-13] VITALS (104 sets, daily range): BP systolic 93–142; BP diastolic 51–73
[2022-04-13] MEDS: SODIUM BICARBONATE 50ML VIAL 50 ML in SOD CHL 0.45% 1,000 ML IV SCH ×4 (00:11→23:14)
[2022-04-13] MEDS: InsuLIN REG 1unit/0.01ml Soln (100units/ml) SC SCH ×4 (00:13→17:59)
[2022-04-13] MEDS: ACCU-CHEK COMFORT CURVE STRIP VI SCH ×4 (00:26→17:56)
[2022-04-13] MEDS: LINEZOLID 600MG/300ML 300 ML IV SCH ×2 (05:22→17:56)
[2022-04-13] MEDS: CALCIUM ACETATE 667 MG CAP PO SCH ×4 (05:22→22:07)
[2022-04-13] MEDS: LACTULOSE 10g/15ml SOLN 473ML PR SCH ×4 (05:23→17:54)
[2022-04-13] MEDS: BUMETANIDE 2.5mg/10ml (0.25 mg/ml) INJ IV SCH ×2 (05:34→17:56)
[2022-04-13] MEDS: fentaNYL Drip 2500mCg/250mlNS 250 ML IV SCH ×2 (06:04→22:06)
[2022-04-13] MEDS: PIPERACILLIN-TAZOB 2.25GM 50 ML IV SCH ×3 (06:16→22:06)
[2022-04-13 06:48] LABS: Hematocrit 25.7 % (41.0-53.0); Hemoglobin 8.5 g/dL (13.5-17.5); Mean Corpuscular Hemoglobin 28.5 pg (28.0-32.0); Mean Corpuscular Hgb Conc. 33.1 g/dL (32.0-36.0); Mean Corpuscular Volume 86.3 fL (80.0-100.0); Red Blood Cells 2.97 10^6/uL (4.5-5.90); Red Cell Distribution Width 17.9 % (11.8-14.3); White Blood Cell 9.2 10^3/uL (4.4-10.8)
[2022-04-13 06:55] LABS: Basophils % (manual) 0 (0.0-2.0); Blast Cells 0; Promyelocytes % 0; Reactive Lymphocytes 0
[2022-04-13 07:00] LABS: Calcium 7.3 mg/dL (8.5-10.1)
[2022-04-13 07:04] LABS: BUN/Creatinine Ratio 36.2; Bilirubin, Total 0.8 mg/dL (0.2-1.0); Total Protein 5.4 g/dL (6.4-8.2)
[2022-04-13 07:51] LABS: Band Neutrophils % (manual) 1; Eosinophils % (manual) 2 (0-7); Lymphocytes % (manual) 7 (10.0-50.0); Metamyelocytes % 1; Monocytes % (manual) 6 (0-12); Myelocytes % 2
[2022-04-13] MEDS: PANTOPRAZOLE 40 MG/10 ML VIAL INJ IV SCH ×2 (10:23→22:06)
[2022-04-13] MEDS: DOPamine 1600MCG/ML D5W 250 ML IV SCH (14:11)
[2022-04-13 16:44] LABS: Basophils # (auto) 0 10 ^3/uL (0-0.2); Basophils % (auto) 0.2 % (0.0-2.0); Eosinophils # (auto) 0.1 10 ^3/uL (0-0.8); Eosinophils % (auto) 1.1 % (0.0-7.0); Hematocrit 23.6 % (41.0-53.0); Hemoglobin 8.1 g/dL (13.5-17.5); Lymphocytes # (auto) 0.6 10 ^3/uL (0.4-5.4); Lymphocytes % (auto) 9.3 % (10.0-50.0); Mean Corpuscular Hemoglobin 28.8 pg (28.0-32.0); Mean Corpuscular Hgb Conc. 34.1 g/dL (32.0-36.0); Mean Corpuscular Volume 84.7 fL (80.0-100.0); Monocytes # (auto) 0.8 10 ^3/uL (0-1.3); Monocytes % (auto) 12.3 % (0.0-12.0); Neutrophils # (auto) 4.9 10 ^3/uL (1.6-8.6); Neutrophils % (auto) 77.1 % (37.0-80.0); Nucleated Red Blood Cells % 0.3 %; Red Blood Cells 2.79 10^6/uL (4.5-5.90); Red Cell Distribution Width 17.5 % (11.8-14.3); White Blood Cell 6.3 10^3/uL (4.4-10.8)
[2022-04-13] MEDS ORDERED: TPN PER PHARMACY 0 ML IV SCH (17:00)
[2022-04-13 17:01] LABS: Albumin 1.9 g/dL (3.4-5.0); Calcium 7.8 mg/dL (8.5-10.1); Magnesium 2.1 mg/dL (1.6-2.6); Phosphorus 5.9 mg/dL (2.5-4.90); Potassium 3.8 mmol/L (3.5-5.1)
[2022-04-13 17:05] LABS: BUN/Creatinine Ratio 36.7; Bilirubin, Total 0.8 mg/dL (0.2-1.0); Total Protein 5.8 g/dL (6.4-8.2)
[2022-04-13] MEDS: NOREPINEPHRINE 8 MG/250ML KIT 250 ML IV SCH (17:22)
[2022-04-13] MEDS ORDERED: AMINO ACID INFUSION IN D10W 1,000 ML IV NR (20:00)
[2022-04-14] VITALS (105 sets, daily range): BP systolic 94–141; BP diastolic 60–75
[2022-04-14] MEDS ORDERED: DEXTROSE (50%) 50ML SYRG IV SCH
[2022-04-14] MEDS: ACCU-CHEK COMFORT CURVE STRIP VI SCH ×4 (00:44→18:00)
[2022-04-14] MEDS: InsuLIN REG 1unit/0.01ml Soln (100units/ml) SC SCH ×4 (00:46→18:03)
[2022-04-14 05:27] LABS: Albumin 1.7 g/dL (3.4-5.0); Calcium 7.2 mg/dL (8.5-10.1); Magnesium 2.2 mg/dL (1.6-2.6); Potassium 4.1 mmol/L (3.5-5.1)
[2022-04-14 05:32] LABS: BUN/Creatinine Ratio 37.3; Bilirubin, Total 0.9 mg/dL (0.2-1.0); Phosphorus 5.5 mg/dL (2.5-4.90); Total Protein 5.4 g/dL (6.4-8.2)
[2022-04-14] MEDS: ONDANSETRON HCL 4 MG/2 ML VIAL IV PRN (05:52)
[2022-04-14] MEDS: LINEZOLID 600MG/300ML 300 ML IV SCH ×2 (05:53→17:49)
[2022-04-14] MEDS: BUMETANIDE 2.5mg/10ml (0.25 mg/ml) INJ IV SCH ×2 (05:53→17:49)
[2022-04-14] MEDS: PIPERACILLIN-TAZOB 2.25GM 50 ML IV SCH (05:53)
[2022-04-14] MEDS: CALCIUM ACETATE 667 MG CAP PO SCH ×3 (05:54→22:00)
[2022-04-14] MEDS: LACTULOSE 10g/15ml SOLN 473ML PR SCH ×4 (06:00→18:00)
[2022-04-14] MEDS: SODIUM BICARBONATE 50ML VIAL 50 ML in SOD CHL 0.45% 1,000 ML IV SCH ×2 (07:36→10:28)
[2022-04-14] MEDS: PROPOFOL 100 ML IV SCH (08:15)
[2022-04-14] MEDS: DOPamine 1600MCG/ML D5W 250 ML IV SCH (08:59)
[2022-04-14] MEDS: NOREPINEPHRINE 8 MG/250ML KIT 250 ML IV SCH (08:59)
[2022-04-14] MEDS ORDERED: PHYTONADIONE (VIT K)10 MG/ML 1ML VIAL SUBCUT ONE (09:45)
[2022-04-14] MEDS: PANTOPRAZOLE 40 MG/10 ML VIAL INJ IV SCH ×2 (10:26→22:06)
[2022-04-14] MEDS: PIPERACILLIN-TAZOB 3.375GM 100 ML IV SCH ×2 (13:51→22:06)
[2022-04-14] MEDS: fentaNYL Drip 2500mCg/250mlNS 250 ML IV SCH (16:40)
[2022-04-14] MEDS ORDERED: MAGNESIUM SULF IV NR ×8 (20:00)
[2022-04-14] MEDS ORDERED: MULTIPLE VIT IV NR ×8 (20:00)
[2022-04-14] MEDS ORDERED: [UNRECOGNIZED DRUG - OTHER] IV NR ×8 (20:00)
[2022-04-14] MEDS ORDERED: TPN PER PHARMACY IV NR ×8 (20:00)
[2022-04-14] MEDS ORDERED: VIT K IV NR ×8 (20:00)
[2022-04-14] MEDS ORDERED: SODIUM ACETATE IV NR ×8 (20:00)
[2022-04-15] VITALS (106 sets, daily range): BP systolic 90–146; BP diastolic 54–76
[2022-04-15] MEDS: LACTULOSE 10g/15ml SOLN 473ML PR SCH ×4 (00:45→17:46)
[2022-04-15] MEDS: ACCU-CHEK COMFORT CURVE STRIP VI SCH ×4 (00:46→17:46)
[2022-04-15] MEDS: InsuLIN REG 1unit/0.01ml Soln (100units/ml) SC SCH ×4 (00:57→17:52)
[2022-04-15] MEDS: CALCIUM ACETATE 667 MG CAP PO SCH ×3 (06:00→22:00)
[2022-04-15] MEDS: BUMETANIDE 2.5mg/10ml (0.25 mg/ml) INJ IV SCH ×2 (06:09→17:50)
[2022-04-15] MEDS: LINEZOLID 600MG/300ML 300 ML IV SCH ×2 (06:10→17:50)
[2022-04-15] MEDS: PIPERACILLIN-TAZOB 3.375GM 100 ML IV SCH ×3 (06:10→22:06)
[2022-04-15 06:59] LABS: Hematocrit 24.3 % (41.0-53.0)
[2022-04-15 07:01] LABS: Hemoglobin 7.7 g/dL (13.5-17.5); Mean Corpuscular Hemoglobin 28.1 pg (28.0-32.0); Mean Corpuscular Hgb Conc. 31.9 g/dL (32.0-36.0); Red Blood Cells 2.76 10^6/uL (4.5-5.90); Red Cell Distribution Width 18.3 % (11.8-14.3); White Blood Cell 8.7 10^3/uL (4.4-10.8)
[2022-04-15] MEDS: SODIUM BICARBONATE 50ML VIAL 50 ML in SOD CHL 0.45% 1,000 ML IV SCH ×2 (07:15→13:46)
[2022-04-15 07:45] LABS: Basophils % (manual) 0 (0.0-2.0); Blast Cells 0; Eosinophils % (manual) 0 (0-7); Promyelocytes % 0; Reactive Lymphocytes 0
[2022-04-15] MEDS: PROPOFOL 100 ML IV SCH (08:15)
[2022-04-15] MEDS: fentaNYL Drip 2500mCg/250mlNS 250 ML IV SCH ×2 (08:50→22:06)
[2022-04-15] MEDS: PANTOPRAZOLE 40 MG/10 ML VIAL INJ IV SCH ×2 (08:55→22:06)
[2022-04-15 10:01] LABS: Potassium 3.6 mmol/L (3.5-5.1)
[2022-04-15 10:02] LABS: BUN/Creatinine Ratio 39.6
[2022-04-15 10:03] LABS: Albumin 1.8 g/dL (3.4-5.0); Bilirubin, Total 0.7 mg/dL (0.2-1.0); Calcium 7.9 mg/dL (8.5-10.1); Magnesium 2.5 mg/dL (1.6-2.6); Phosphorus 5.6 mg/dL (2.5-4.90); Total Protein 5.8 g/dL (6.4-8.2)
[2022-04-15 12:48] LABS: Band Neutrophils % (manual) 5; Lymphocytes % (manual) 4 (10.0-50.0); Metamyelocytes % 3; Monocytes % (manual) 11 (0-12); Myelocytes % 1
[2022-04-15] MEDS: NOREPINEPHRINE 8 MG/250ML KIT 250 ML IV SCH (17:30)
[2022-04-15] MEDS ORDERED: TPN PER PHARMACY IV NR ×9 (20:00)
[2022-04-16] VITALS (99 sets, daily range): BP systolic 96–145; BP diastolic 56–76
[2022-04-16] MEDS: ACCU-CHEK COMFORT CURVE STRIP VI SCH ×4 (00:47→18:00)
[2022-04-16] MEDS: InsuLIN REG 1unit/0.01ml Soln (100units/ml) SC SCH ×4 (00:49→18:00)
[2022-04-16 05:19] LABS: Basophils # (auto) 0 10 ^3/uL (0-0.2); Basophils % (auto) 0.1 % (0.0-2.0); Eosinophils # (auto) 0.1 10 ^3/uL (0-0.8); Nucleated Red Blood Cells % 0.3 %
[2022-04-16 05:20] LABS: Eosinophils % (auto) 1.3 % (0.0-7.0); Hematocrit 25.5 % (41.0-53.0); Hemoglobin 8.2 g/dL (13.5-17.5); Lymphocytes # (auto) 0.7 10 ^3/uL (0.4-5.4); Lymphocytes % (auto) 7.8 % (10.0-50.0); Mean Corpuscular Hemoglobin 28.1 pg (28.0-32.0); Mean Corpuscular Hgb Conc. 32.2 g/dL (32.0-36.0); Mean Corpuscular Volume 87.3 fL (80.0-100.0); Neutrophils # (auto) 7.3 10 ^3/uL (1.6-8.6); Neutrophils % (auto) 79.8 % (37.0-80.0); Red Blood Cells 2.92 10^6/uL (4.5-5.90); Red Cell Distribution Width 18.2 % (11.8-14.3); White Blood Cell 9.2 10^3/uL (4.4-10.8)
[2022-04-16 05:31] LABS: Calcium 7.7 mg/dL (8.5-10.1); Potassium 3.5 mmol/L (3.5-5.1)
[2022-04-16 05:33] LABS: Albumin 1.6 g/dL (3.4-5.0); Magnesium 2.5 mg/dL (1.6-2.6)
[2022-04-16 05:50] LABS: BUN/Creatinine Ratio 36.1; Bilirubin, Total 0.7 mg/dL (0.2-1.0); Phosphorus 5.2 mg/dL (2.5-4.90); Total Protein 5.6 g/dL (6.4-8.2)
[2022-04-16] MEDS: LACTULOSE 10g/15ml SOLN 473ML PR SCH ×3 (06:00→12:00)
[2022-04-16] MEDS: CALCIUM ACETATE 667 MG CAP PO SCH ×3 (06:00→22:00)
[2022-04-16] MEDS: BUMETANIDE 2.5mg/10ml (0.25 mg/ml) INJ IV SCH ×2 (06:25→18:16)
[2022-04-16] MEDS: LINEZOLID 600MG/300ML 300 ML IV SCH ×2 (06:26→18:16)
[2022-04-16] MEDS: PIPERACILLIN-TAZOB 3.375GM 100 ML IV SCH ×3 (06:26→22:23)
[2022-04-16] MEDS: PROPOFOL 100 ML IV SCH (08:15)
[2022-04-16] MEDS: PANTOPRAZOLE 40 MG/10 ML VIAL INJ IV SCH ×2 (09:53→22:23)
[2022-04-16] MEDS: SODIUM BICARBONATE 50ML VIAL 50 ML in SOD CHL 0.45% 1,000 ML IV SCH ×3 (10:30)
[2022-04-16] MEDS: fentaNYL Drip 2500mCg/250mlNS 250 ML IV SCH (13:15)
[2022-04-16] MEDS: NOREPINEPHRINE 8 MG/250ML KIT 250 ML IV SCH (17:30)
[2022-04-16] MEDS ORDERED: TPN PER PHARMACY IV NR ×8 (20:00)
[2022-04-17] VITALS (84 sets, daily range): BP systolic 97–139; BP diastolic 56–76
[2022-04-17] MEDS: ACCU-CHEK COMFORT CURVE STRIP VI SCH ×4 (00:11→18:01)
[2022-04-17] MEDS: InsuLIN REG 1unit/0.01ml Soln (100units/ml) SC SCH ×4 (00:14→18:01)
[2022-04-17] MEDS: SODIUM BICARBONATE 50ML VIAL 50 ML in SOD CHL 0.45% 1,000 ML IV SCH ×2 (00:55→07:30)
[2022-04-17] MEDS: fentaNYL Drip 2500mCg/250mlNS 250 ML IV SCH ×2 (01:17→17:36)
[2022-04-17] MEDS: ONDANSETRON HCL 4 MG/2 ML VIAL IV PRN ×2 (05:56→20:43)
[2022-04-17] MEDS: CALCIUM ACETATE 667 MG CAP PO SCH (06:00)
[2022-04-17] MEDS: LINEZOLID 600MG/300ML 300 ML IV SCH ×2 (06:10→17:34)
[2022-04-17] MEDS: BUMETANIDE 2.5mg/10ml (0.25 mg/ml) INJ IV SCH ×2 (06:17→17:34)
[2022-04-17 06:26] LABS: Albumin 1.7 g/dL (3.4-5.0); BUN/Creatinine Ratio 39.3; Calcium 7.5 mg/dL (8.5-10.1); Magnesium 2.1 mg/dL (1.6-2.6); Potassium 3.3 mmol/L (3.5-5.1)
[2022-04-17 06:37] LABS: Bilirubin, Total 0.7 mg/dL (0.2-1.0); Phosphorus 4.6 mg/dL (2.5-4.90); Total Protein 5.3 g/dL (6.4-8.2)
[2022-04-17 06:48] LABS: Basophils # (auto) 0 10 ^3/uL (0-0.2); Basophils % (auto) 0.1 % (0.0-2.0); Eosinophils # (auto) 0.2 10 ^3/uL (0-0.8); Eosinophils % (auto) 1.8 % (0.0-7.0); Hematocrit 27.3 % (41.0-53.0); Lymphocytes # (auto) 0.7 10 ^3/uL (0.4-5.4); Lymphocytes % (auto) 6.4 % (10.0-50.0); Mean Corpuscular Hemoglobin 29.2 pg (28.0-32.0); Mean Corpuscular Hgb Conc. 33.1 g/dL (32.0-36.0); Mean Corpuscular Volume 88.3 fL (80.0-100.0); Monocytes # (auto) 1.1 10 ^3/uL (0-1.3); Monocytes % (auto) 10.1 % (0.0-12.0); Neutrophils % (auto) 81.6 % (37.0-80.0); Nucleated Red Blood Cells % 0.2 %; Red Blood Cells 3.09 10^6/uL (4.5-5.90); Red Cell Distribution Width 17.6 % (11.8-14.3); White Blood Cell 11.1 10^3/uL (4.4-10.8)
[2022-04-17] MEDS: PIPERACILLIN-TAZOB 3.375GM 100 ML IV SCH ×3 (07:57→21:49)
[2022-04-17] MEDS: PROPOFOL 100 ML IV SCH (08:15)
[2022-04-17 08:43] LABS: INR 1.14 (0.9-1.15); Partial Thromboplastin Time 26.4 sec (24.6-33.4)
[2022-04-17] MEDS: PANTOPRAZOLE 40 MG/10 ML VIAL INJ IV SCH ×2 (09:30→21:49)
[2022-04-17] MEDS ORDERED: LACTATED RINGER'S 1,000 ML IV SCH (10:30)
[2022-04-17] MEDS: POTASSIUM CHL 20MEQ/100ML 100 ML IV SCH ×2 (10:45→12:38)
[2022-04-17] MEDS: SODIUM CHLORIDE 0.9% 1,000 ML IV SCH ×2 (11:00→23:22)
[2022-04-17] MEDS ORDERED: LIDOCAINE 1% (LOCAL ANESTH.) PF 5ml SDV ID ONE (17:00)
[2022-04-17] MEDS: NOREPINEPHRINE 8 MG/250ML KIT 250 ML IV SCH (17:30)
[2022-04-17] MEDS ORDERED: TPN PER PHARMACY IV NR ×9 (20:00)
[2022-04-17] MEDS: SODIUM CHLOR 0.9% PF (SALINE LOCK) 10ML VIAL/SYR IV SCH (21:50)
[2022-04-18] VITALS (98 sets, daily range): BP systolic 95–132; BP diastolic 55–70
[2022-04-18] MEDS: InsuLIN REG 1unit/0.01ml Soln (100units/ml) SC SCH ×4 (00:21→17:10)
[2022-04-18] MEDS: ACCU-CHEK COMFORT CURVE STRIP VI SCH ×4 (00:22→17:10)
[2022-04-18] MEDS: ONDANSETRON HCL 4 MG/2 ML VIAL IV PRN ×4 (05:01→20:50)
[2022-04-18 05:17] LABS: Albumin 1.7 g/dL (3.4-5.0); Calcium 7.9 mg/dL (8.5-10.1); Magnesium 2.4 mg/dL (1.6-2.6); Potassium 3.2 mmol/L (3.5-5.1)
[2022-04-18 05:20] LABS: Bilirubin, Total 0.7 mg/dL (0.2-1.0); Phosphorus 4.3 mg/dL (2.5-4.90); Total Protein 5.8 g/dL (6.4-8.2)
[2022-04-18] MEDS: BUMETANIDE 2.5mg/10ml (0.25 mg/ml) INJ IV SCH ×2 (05:35→17:31)
[2022-04-18] MEDS: PIPERACILLIN-TAZOB 3.375GM 100 ML IV SCH ×3 (05:51→22:00)
[2022-04-18] MEDS: LINEZOLID 600MG/300ML 300 ML IV SCH ×2 (05:53→17:31)
[2022-04-18] MEDS: PROPOFOL 100 ML IV SCH (07:59)
[2022-04-18] MEDS: fentaNYL Drip 2500mCg/250mlNS 250 ML IV SCH ×2 (08:57→23:48)
[2022-04-18] MEDS: SODIUM CHLOR 0.9% PF (SALINE LOCK) 10ML VIAL/SYR IV SCH ×2 (10:40→22:01)
[2022-04-18] MEDS: POTASSIUM CHL 20MEQ/100ML 100 ML IV SCH ×2 (10:49→12:58)
[2022-04-18] MEDS: PANTOPRAZOLE 40 MG/10 ML VIAL INJ IV SCH ×2 (10:49→22:00)
[2022-04-18] MEDS: SODIUM CHLORIDE 0.9% 1,000 ML IV SCH (11:37)
[2022-04-18] MEDS ORDERED: FUROSEMIDE 40 MG/4 ML VIAL IV ONE (14:15)
[2022-04-18] MEDS: NOREPINEPHRINE 8 MG/250ML KIT 250 ML IV SCH (16:25)
[2022-04-18] MEDS ORDERED: TPN PER PHARMACY IV NR ×9 (20:00)
[2022-04-19] VITALS (99 sets, daily range): BP systolic 86–130; BP diastolic 55–71
[2022-04-19] MEDS: ACCU-CHEK COMFORT CURVE STRIP VI SCH ×4 (00:09→17:45)
[2022-04-19] MEDS: InsuLIN REG 1unit/0.01ml Soln (100units/ml) SC SCH ×4 (00:09→17:47)
[2022-04-19 05:20] LABS: Alanine Aminotransferase 86 U/L (16-61); Albumin 1.5 g/dL (3.4-5.0); Anion Gap 12 (5-15); Aspartate Aminotransferase 86 U/L (15-37); BUN/Creatinine Ratio 37.4; Carbon Dioxide 21 mmol/L (21-32); Chloride 100 mmol/L (98-107); GFR African American 23 mL/min; GFR Non-African American 19 mL/min; Glucose 222 mg/dL (74-106); Magnesium 2.4 mg/dL (1.6-2.6); Sodium 133 mmol/L (136-145)
[2022-04-19 05:22] LABS: Alkaline Phosphatase 316 U/L (45-117); Bilirubin, Total 0.7 mg/dL (0.2-1.0); Phosphorus 3.8 mg/dL (2.5-4.90); Total Protein 5.5 g/dL (6.4-8.2)
[2022-04-19] MEDS: SODIUM CHLORIDE 0.9% 1,000 ML IV SCH (05:29)
[2022-04-19] MEDS: BUMETANIDE 2.5mg/10ml (0.25 mg/ml) INJ IV SCH ×2 (05:30→18:24)
[2022-04-19] MEDS: LINEZOLID 600MG/300ML 300 ML IV SCH ×3 (05:30→17:42)
[2022-04-19] MEDS: PIPERACILLIN-TAZOB 3.375GM 100 ML IV SCH ×3 (05:31→21:37)
[2022-04-19 06:03] LABS: Blood Urea Nitrogen 128 mg/dL (7-18)
[2022-04-19 07:11] LABS: Basophils # (auto) 0 10 ^3/uL (0-0.2); Basophils % (auto) 0.2 % (0.0-2.0); Eosinophils # (auto) 0.3 10 ^3/uL (0-0.8); Eosinophils % (auto) 1.9 % (0.0-7.0); Hematocrit 29.1 % (41.0-53.0); Hemoglobin 9.1 g/dL (13.5-17.5); Lymphocytes # (auto) 0.9 10 ^3/uL (0.4-5.4); Lymphocytes % (auto) 5.7 % (10.0-50.0); Mean Corpuscular Hemoglobin 27.4 pg (28.0-32.0); Mean Corpuscular Hgb Conc. 31.3 g/dL (32.0-36.0); Mean Corpuscular Volume 87.5 fL (80.0-100.0); Monocytes # (auto) 1.6 10 ^3/uL (0-1.3); Monocytes % (auto) 10.4 % (0.0-12.0); Neutrophils # (auto) 12.8 10 ^3/uL (1.6-8.6); Neutrophils % (auto) 81.8 % (37.0-80.0); Nucleated Red Blood Cells % 0.2 %; Red Blood Cells 3.33 10^6/uL (4.5-5.90); Red Cell Distribution Width 18.1 % (11.8-14.3); White Blood Cell 15.6 10^3/uL (4.4-10.8)
[2022-04-19] MEDS: PROPOFOL 100 ML IV SCH (08:15)
[2022-04-19] MEDS: ONDANSETRON HCL 4 MG/2 ML VIAL IV PRN ×2 (10:13→13:35)
[2022-04-19] MEDS: PANTOPRAZOLE 40 MG/10 ML VIAL INJ IV SCH ×2 (10:13→21:36)
[2022-04-19] MEDS: SODIUM CHLOR 0.9% PF (SALINE LOCK) 10ML VIAL/SYR IV SCH ×2 (10:14→21:36)
[2022-04-19] MEDS: ALBUMIN 25% 100 ML IV SCH ×2 (11:20→12:22)
[2022-04-19] MEDS: OCTREOTIDE ACETATE 100 MCG/ML VL SUBCUT SCH ×2 (12:14→22:00)
[2022-04-19] MEDS: NOREPINEPHRINE 8 MG/250ML KIT 250 ML IV SCH (17:30)
[2022-04-19] MEDS ORDERED: TPN PER PHARMACY IV NR ×9 (20:00)
[2022-04-19] MEDS: fentaNYL Drip 2500mCg/250mlNS 250 ML IV SCH (23:53)
[2022-04-20] VITALS (96 sets, daily range): BP systolic 86–138; BP diastolic 49–75
[2022-04-20] MEDS: InsuLIN REG 1unit/0.01ml Soln (100units/ml) SC SCH ×4 (01:13→17:11)
[2022-04-20 05:20] LABS: Albumin 2.5 g/dL (3.4-5.0); Calcium 8.2 mg/dL (8.5-10.1); Magnesium 2.2 mg/dL (1.6-2.6); Potassium 3.6 mmol/L (3.5-5.1)
[2022-04-20 05:26] LABS: BUN/Creatinine Ratio 35.9; Bilirubin, Total 0.8 mg/dL (0.2-1.0); Phosphorus 4.2 mg/dL (2.5-4.90); Total Protein 5.8 g/dL (6.4-8.2)
[2022-04-20] MEDS: PIPERACILLIN-TAZOB 3.375GM 100 ML IV SCH ×3 (05:40→21:26)
[2022-04-20] MEDS: LINEZOLID 600MG/300ML 300 ML IV SCH ×2 (05:40→17:15)
[2022-04-20] MEDS: OCTREOTIDE ACETATE 100 MCG/ML VL SUBCUT SCH ×3 (05:56→21:26)
[2022-04-20] MEDS: ACCU-CHEK COMFORT CURVE STRIP VI SCH ×5 (05:58→23:34)
[2022-04-20] MEDS: PROPOFOL 100 ML IV SCH (08:00)
[2022-04-20] MEDS: SODIUM CHLOR 0.9% PF (SALINE LOCK) 10ML VIAL/SYR IV SCH ×2 (08:10→21:26)
[2022-04-20] MEDS: PANTOPRAZOLE 40 MG/10 ML VIAL INJ IV SCH ×2 (08:15→21:26)
[2022-04-20] MEDS ORDERED: SPIRONOLACTONE 25 MG TAB PO SCH (10:00)
[2022-04-20] MEDS: DOPamine 1600MCG/ML D5W 250 ML IV SCH (10:04)
[2022-04-20 10:34] LABS: Hemoglobin 8.3 g/dL (13.5-17.5); Monocytes # (auto) 1.1 10 ^3/uL (0-1.3); Monocytes % (auto) 7.9 % (0.0-12.0); Neutrophils # (auto) 11.2 10 ^3/uL (1.6-8.6); Nucleated Red Blood Cells % 0.2 %
[2022-04-20 10:35] LABS: Basophils # (auto) 0 10 ^3/uL (0-0.2); Basophils % (auto) 0.3 % (0.0-2.0); Eosinophils # (auto) 0.5 10 ^3/uL (0-0.8); Eosinophils % (auto) 3.9 % (0.0-7.0); Hematocrit 25.4 % (41.0-53.0); Lymphocytes # (auto) 0.5 10 ^3/uL (0.4-5.4); Lymphocytes % (auto) 3.9 % (10.0-50.0); Mean Corpuscular Hemoglobin 32.9 pg (28.0-32.0); Mean Corpuscular Hgb Conc. 32.8 g/dL (32.0-36.0); Mean Corpuscular Volume 100.4 fL (80.0-100.0); Red Blood Cells 2.53 10^6/uL (4.5-5.90); Red Cell Distribution Width 19.8 % (11.8-14.3); White Blood Cell 13.3 10^3/uL (4.4-10.8)
[2022-04-20] MEDS: NOREPINEPHRINE 8 MG/250ML KIT 250 ML IV SCH (17:04)
[2022-04-20] MEDS ORDERED: TPN PER PHARMACY IV NR ×10 (20:00)
[2022-04-20] MEDS: fentaNYL Drip 2500mCg/250mlNS 250 ML IV SCH (23:33)
[2022-04-21] VITALS (52 sets, daily range): BP systolic 82–124; BP diastolic 46–71
[2022-04-21] MEDS: InsuLIN REG 1unit/0.01ml Soln (100units/ml) SC SCH ×5 (00:25→23:27)
[2022-04-21] MEDS: ONDANSETRON HCL 4 MG/2 ML VIAL IV PRN ×2 (05:06→20:29)
[2022-04-21] MEDS: PIPERACILLIN-TAZOB 3.375GM 100 ML IV SCH ×3 (05:54→21:36)
[2022-04-21] MEDS: LINEZOLID 600MG/300ML 300 ML IV SCH ×2 (05:54→17:50)
[2022-04-21] MEDS: OCTREOTIDE ACETATE 100 MCG/ML VL SUBCUT SCH ×3 (06:19→21:36)
[2022-04-21] MEDS: ACCU-CHEK COMFORT CURVE STRIP VI SCH ×4 (06:19→23:27)
[2022-04-21 06:48] LABS: Basophils # (auto) 0 10 ^3/uL (0-0.2); Basophils % (auto) 0.3 % (0.0-2.0); Eosinophils # (auto) 0.4 10 ^3/uL (0-0.8); Hematocrit 27.9 % (41.0-53.0); Hemoglobin 9.2 g/dL (13.5-17.5); Lymphocytes # (auto) 0.7 10 ^3/uL (0.4-5.4); Lymphocytes % (auto) 4.6 % (10.0-50.0); Mean Corpuscular Hemoglobin 28.9 pg (28.0-32.0); Mean Corpuscular Hgb Conc. 33.1 g/dL (32.0-36.0); Mean Corpuscular Volume 87.4 fL (80.0-100.0); Monocytes # (auto) 1.2 10 ^3/uL (0-1.3); Monocytes % (auto) 7.9 % (0.0-12.0); Neutrophils # (auto) 12.5 10 ^3/uL (1.6-8.6); Neutrophils % (auto) 84.2 % (37.0-80.0); Nucleated Red Blood Cells % 0.6 %; Red Blood Cells 3.19 10^6/uL (4.5-5.90); White Blood Cell 14.9 10^3/uL (4.4-10.8)
[2022-04-21 07:00] LABS: Albumin 2.5 g/dL (3.4-5.0); Calcium 8.8 mg/dL (8.5-10.1); Magnesium 2.5 mg/dL (1.6-2.6); Potassium 4.1 mmol/L (3.5-5.1)
[2022-04-21 07:05] LABS: Bilirubin, Total 1.1 mg/dL (0.2-1.0); Total Protein 6.7 g/dL (6.4-8.2)
[2022-04-21 07:58] LABS: BUN/Creatinine Ratio 32.1
[2022-04-21] MEDS ORDERED: ALBUMIN 25% 100 ML IV PRN (08:15)
[2022-04-21] MEDS: DOPamine 1600MCG/ML D5W 250 ML IV SCH ×2 (08:30→21:49)
[2022-04-21] MEDS: SODIUM CHLOR 0.9% PF (SALINE LOCK) 10ML VIAL/SYR IV SCH ×2 (09:52→21:50)
[2022-04-21] MEDS: PANTOPRAZOLE 40 MG/10 ML VIAL INJ IV SCH ×2 (09:52→21:36)
[2022-04-21] MEDS: NOREPINEPHRINE 8 MG/250ML KIT 250 ML IV SCH (09:53)
[2022-04-21] MEDS: MORPHINE SULFATE INJ 2 MG/ml SYRG IV PRN (10:58)
[2022-04-21] MEDS: ALBUMIN 25% 100 ML IV SCH ×2 (13:17→14:13)
[2022-04-21 18:42] LABS: Eosinophils # (auto) 0.4 10 ^3/uL (0-0.8); Hematocrit 19.8 % (41.0-53.0); Lymphocytes # (auto) 0.8 10 ^3/uL (0.4-5.4)
[2022-04-21 18:44] LABS: Basophils # (auto) 0.1 10 ^3/uL (0-0.2); Basophils % (auto) 0.4 % (0.0-2.0); Eosinophils % (auto) 2.8 % (0.0-7.0); Lymphocytes % (auto) 5.9 % (10.0-50.0); Mean Corpuscular Hemoglobin 29.9 pg (28.0-32.0); Mean Corpuscular Hgb Conc. 34.4 g/dL (32.0-36.0); Mean Corpuscular Volume 87.2 fL (80.0-100.0); Monocytes # (auto) 1.5 10 ^3/uL (0-1.3); Monocytes % (auto) 10.6 % (0.0-12.0); Neutrophils # (auto) 11.4 10 ^3/uL (1.6-8.6); Neutrophils % (auto) 80.3 % (37.0-80.0); Nucleated Red Blood Cells % 0.7 %; Red Blood Cells 2.28 10^6/uL (4.5-5.90); Red Cell Distribution Width 18.3 % (11.8-14.3); White Blood Cell 14.2 10^3/uL (4.4-10.8)
[2022-04-21 18:48] LABS: Hemoglobin 6.8 g/dL (13.5-17.5)
[2022-04-21 18:56] LABS: INR 1.19 (0.9-1.15); Partial Thromboplastin Time 30.2 sec (24.6-33.4)
[2022-04-21] MEDS ORDERED: PHYTONADIONE (VIT K)10 MG/ML 1ML VIAL SUBCUT ONE (19:15)
[2022-04-21] MEDS ORDERED: TPN PER PHARMACY IV NR ×8 (20:00)
[2022-04-22] VITALS (39 sets, daily range): BP systolic 80–142; BP diastolic 49–75
[2022-04-22] MEDS: ONDANSETRON HCL 4 MG/2 ML VIAL IV PRN (04:54)
[2022-04-22 05:52] LABS: Hematocrit 26.5 % (41.0-53.0); Hemoglobin 9.1 g/dL (13.5-17.5)
[2022-04-22 05:57] LABS: Albumin 2.8 g/dL (3.4-5.0); Calcium 8.1 mg/dL (8.5-10.1); Magnesium 2.2 mg/dL (1.6-2.6); Potassium 4.4 mmol/L (3.5-5.1)
[2022-04-22 06:00] LABS: BUN/Creatinine Ratio 32.3; Phosphorus 3.9 mg/dL (2.5-4.90); Total Protein 5.5 g/dL (6.4-8.2)
[2022-04-22] MEDS: LINEZOLID 600MG/300ML 300 ML IV SCH ×2 (06:22→18:03)
[2022-04-22] MEDS: PIPERACILLIN-TAZOB 3.375GM 100 ML IV SCH ×3 (06:22→21:53)
[2022-04-22] MEDS: OCTREOTIDE ACETATE 100 MCG/ML VL SUBCUT SCH ×3 (06:22→21:53)
[2022-04-22] MEDS: ACCU-CHEK COMFORT CURVE STRIP VI SCH ×3 (06:23→18:00)
[2022-04-22] MEDS: InsuLIN REG 1unit/0.01ml Soln (100units/ml) SC SCH ×3 (06:23→18:00)
[2022-04-22] MEDS ORDERED: SODIUM CHL 0.9% 1000 ML BAG XX ONE (07:00)
[2022-04-22] MEDS: SODIUM CHLOR 0.9% PF (SALINE LOCK) 10ML VIAL/SYR IV SCH ×2 (09:15→21:52)
[2022-04-22] MEDS: PANTOPRAZOLE 40 MG/10 ML VIAL INJ IV SCH ×2 (09:15→21:52)
[2022-04-22] MEDS ORDERED: TPN PER PHARMACY IV NR ×9 (20:00)
[2022-04-22] MEDS ORDERED: EPOETIN ALFA-EPBX 10,000 UNIT/1ML VIAL SC ONE (21:00)
[2022-04-22] MEDS: MORPHINE SULFATE INJ 2 MG/ml SYRG IV PRN (21:54)
[2022-04-23] MEDS: ACCU-CHEK COMFORT CURVE STRIP VI SCH ×5 (00:09→23:49)
[2022-04-23] MEDS: InsuLIN REG 1unit/0.01ml Soln (100units/ml) SC SCH ×4 (00:10→18:00)
[2022-04-23] MEDS: LINEZOLID 600MG/300ML 300 ML IV SCH ×2 (03:33→16:00)
[2022-04-23 05:00] VITALS: BP 91/67
[2022-04-23] MEDS: PIPERACILLIN-TAZOB 3.375GM 100 ML IV SCH ×3 (06:18→22:28)
[2022-04-23] MEDS: OCTREOTIDE ACETATE 100 MCG/ML VL SUBCUT SCH ×2 (06:19→14:00)
[2022-04-23] MEDS ORDERED: SODIUM CHL 0.9% 1000 ML BAG XX ONE (07:00)
[2022-04-23] MEDS: DOPamine 1600MCG/ML D5W 250 ML IV SCH (08:28)
[2022-04-23 08:38] LABS: Albumin 2.9 g/dL (3.4-5.0); BUN/Creatinine Ratio 30.1; Calcium 8.5 mg/dL (8.5-10.1); Potassium 3.8 mmol/L (3.5-5.1)
[2022-04-23 08:41] LABS: Phosphorus 4.5 mg/dL (2.5-4.90); Total Protein 6.3 g/dL (6.4-8.2)
[2022-04-23 09:23] VITALS: BP 112/75
[2022-04-23] MEDS: PANTOPRAZOLE 40 MG/10 ML VIAL INJ IV SCH ×2 (09:53→22:28)
[2022-04-23] MEDS: SODIUM CHLOR 0.9% PF (SALINE LOCK) 10ML VIAL/SYR IV SCH ×2 (09:55→22:39)
[2022-04-23 11:07] LABS: Basophils # (auto) 0 10 ^3/uL (0-0.2); Basophils % (auto) 0.2 % (0.0-2.0); Eosinophils # (auto) 0.4 10 ^3/uL (0-0.8); Eosinophils % (auto) 2.4 % (0.0-7.0); Hematocrit 29.4 % (41.0-53.0); Hemoglobin 9.9 g/dL (13.5-17.5); Lymphocytes # (auto) 0.6 10 ^3/uL (0.4-5.4); Lymphocytes % (auto) 3.4 % (10.0-50.0); Mean Corpuscular Hemoglobin 28.8 pg (28.0-32.0); Mean Corpuscular Hgb Conc. 33.6 g/dL (32.0-36.0); Mean Corpuscular Volume 85.8 fL (80.0-100.0); Monocytes # (auto) 1.4 10 ^3/uL (0-1.3); Monocytes % (auto) 8.4 % (0.0-12.0); Neutrophils # (auto) 14.1 10 ^3/uL (1.6-8.6); Neutrophils % (auto) 85.6 % (37.0-80.0); Nucleated Red Blood Cells % 0.6 %; Red Blood Cells 3.43 10^6/uL (4.5-5.90); White Blood Cell 16.4 10^3/uL (4.4-10.8)
[2022-04-23 11:15] LABS: Red Cell Distribution Width 20.1 % (11.8-14.3)
[2022-04-23 12:52] VITALS: BP 129/96
[2022-04-23] MEDS ORDERED: TPN PER PHARMACY IV NR ×9 (20:00)
[2022-04-23] MEDS ORDERED: EPOETIN ALFA-EPBX 10,000 UNIT/1ML VIAL SC ONE (21:00)
[2022-04-23 22:00] VITALS: BP 118/68
[2022-04-24] MEDS: InsuLIN REG 1unit/0.01ml Soln (100units/ml) SC SCH ×4 (00:01→17:01)
[2022-04-24] MEDS: MORPHINE SULFATE INJ 2 MG/ml SYRG IV PRN ×3 (03:28→22:41)
[2022-04-24] MEDS: LINEZOLID 600MG/300ML 300 ML IV SCH ×2 (04:34→15:51)
[2022-04-24 05:00] VITALS: BP 117/62
[2022-04-24] MEDS: ACCU-CHEK COMFORT CURVE STRIP VI SCH ×5 (05:49→22:00)
[2022-04-24] MEDS: OCTREOTIDE ACETATE 100 MCG/ML VL SUBCUT SCH ×4 (06:00→22:43)
[2022-04-24 07:12] LABS: Basophils # (auto) 0.1 10 ^3/uL (0-0.2); Basophils % (auto) 0.3 % (0.0-2.0); Eosinophils # (auto) 0.3 10 ^3/uL (0-0.8); Eosinophils % (auto) 1.8 % (0.0-7.0); Hematocrit 27.1 % (41.0-53.0); Hemoglobin 9.3 g/dL (13.5-17.5); Lymphocytes # (auto) 0.6 10 ^3/uL (0.4-5.4); Lymphocytes % (auto) 3.9 % (10.0-50.0); Mean Corpuscular Hemoglobin 29.1 pg (28.0-32.0); Mean Corpuscular Hgb Conc. 34.2 g/dL (32.0-36.0); Monocytes # (auto) 1.8 10 ^3/uL (0-1.3); Monocytes % (auto) 10.9 % (0.0-12.0); Neutrophils # (auto) 13.7 10 ^3/uL (1.6-8.6); Neutrophils % (auto) 83.1 % (37.0-80.0); Nucleated Red Blood Cells % 0.8 %; White Blood Cell 16.5 10^3/uL (4.4-10.8)
[2022-04-24 07:35] LABS: Potassium 3.5 mmol/L (3.5-5.1)
[2022-04-24 07:39] LABS: Albumin 2.5 g/dL (3.4-5.0); Calcium 8.5 mg/dL (8.5-10.1); Magnesium 2.3 mg/dL (1.6-2.6)
[2022-04-24 07:53] LABS: BUN/Creatinine Ratio 27.7; Bilirubin, Total 1.7 mg/dL (0.2-1.0); Phosphorus 4.1 mg/dL (2.5-4.90); Total Protein 6.2 g/dL (6.4-8.2)
[2022-04-24] MEDS: DOPamine 1600MCG/ML D5W 250 ML IV SCH (08:30)
[2022-04-24 09:00] VITALS: BP 105/58
[2022-04-24] MEDS: ONDANSETRON HCL 4 MG/2 ML VIAL IV PRN (09:33)
[2022-04-24] MEDS: PANTOPRAZOLE 40 MG/10 ML VIAL INJ IV SCH ×2 (09:33→22:40)
[2022-04-24] MEDS: SODIUM CHLOR 0.9% PF (SALINE LOCK) 10ML VIAL/SYR IV SCH ×2 (11:17→22:00)
[2022-04-24] MEDS: PIPERACILLIN-TAZOB 3.375GM 100 ML IV SCH ×2 (11:18→22:42)
[2022-04-24 11:24] LABS: INR 1.14 (0.9-1.15); Partial Thromboplastin Time 30.2 sec (24.6-33.4)
[2022-04-24] MEDS ORDERED: ALBUMIN 25% 100 ML IV PRN (11:45)
[2022-04-24 12:43] VITALS: BP 100/62
[2022-04-24 17:00] VITALS: BP 102/61
[2022-04-24] MEDS ORDERED: TPN PER PHARMACY IV NR ×10 (20:00)
[2022-04-24 22:00] VITALS: BP 113/60
[2022-04-25] MEDS: LINEZOLID 600MG/300ML 300 ML IV SCH ×2 (04:43→17:18)
[2022-04-25 05:00] VITALS: BP 113/68
[2022-04-25] MEDS: OCTREOTIDE ACETATE 100 MCG/ML VL SUBCUT SCH ×3 (05:52→22:08)
[2022-04-25 06:14] LABS: Basophils # (auto) 0.1 10 ^3/uL (0-0.2); Basophils % (auto) 0.3 % (0.0-2.0); Eosinophils # (auto) 0.1 10 ^3/uL (0-0.8); Eosinophils % (auto) 0.5 % (0.0-7.0); Hematocrit 28.5 % (41.0-53.0); Hemoglobin 9.3 g/dL (13.5-17.5); Lymphocytes # (auto) 0.5 10 ^3/uL (0.4-5.4); Lymphocytes % (auto) 2.7 % (10.0-50.0); Mean Corpuscular Hemoglobin 28.3 pg (28.0-32.0); Mean Corpuscular Hgb Conc. 32.8 g/dL (32.0-36.0); Mean Corpuscular Volume 86.3 fL (80.0-100.0); Monocytes # (auto) 1.8 10 ^3/uL (0-1.3); Monocytes % (auto) 10.2 % (0.0-12.0); Neutrophils # (auto) 15.3 10 ^3/uL (1.6-8.6); Neutrophils % (auto) 86.3 % (37.0-80.0); Nucleated Red Blood Cells % 0.8 %; Red Cell Distribution Width 19.7 % (11.8-14.3); White Blood Cell 17.7 10^3/uL (4.4-10.8)
[2022-04-25 06:23] LABS: Calcium 8.4 mg/dL (8.5-10.1); Potassium 4.2 mmol/L (3.5-5.1)
[2022-04-25 06:26] LABS: Albumin 2.5 g/dL (3.4-5.0); BUN/Creatinine Ratio 29.7
[2022-04-25 06:29] LABS: Bilirubin, Total 2.9 mg/dL (0.2-1.0); Total Protein 5.8 g/dL (6.4-8.2)
[2022-04-25] MEDS ORDERED: SODIUM CHL 0.9% 1000 ML BAG XX ONE (07:00)
[2022-04-25] MEDS: DOPamine 1600MCG/ML D5W 250 ML IV SCH (08:30)
[2022-04-25 09:00] VITALS: BP 100/60
[2022-04-25] MEDS: PANTOPRAZOLE 40 MG/10 ML VIAL INJ IV SCH ×2 (10:13→22:07)
[2022-04-25] MEDS: ACCU-CHEK COMFORT CURVE STRIP VI SCH ×2 (10:13→22:13)
[2022-04-25] MEDS: SODIUM CHLOR 0.9% PF (SALINE LOCK) 10ML VIAL/SYR IV SCH ×2 (10:13→22:07)
[2022-04-25] MEDS: PIPERACILLIN-TAZOB 3.375GM 100 ML IV SCH ×2 (10:13→22:07)
[2022-04-25] MEDS: ALBUMIN 25% 100 ML IV SCH ×2 (12:00→13:00)
[2022-04-25 13:00] VITALS: BP 104/54
[2022-04-25 17:00] VITALS: BP 100/61
[2022-04-25] MEDS ORDERED: EPOETIN ALFA-EPBX 10,000 UNIT/1ML VIAL SC ONE (21:00)
[2022-04-25 22:00] VITALS: BP 121/61
[2022-04-26] VITALS (8 sets, daily range): BP systolic 97–122; BP diastolic 53–71
[2022-04-26] MEDS: MORPHINE SULFATE INJ 2 MG/ml SYRG IV PRN ×4 (00:20→09:48)
[2022-04-26] MEDS: LINEZOLID 600MG/300ML 300 ML IV SCH ×2 (03:28→18:50)
[2022-04-26] MEDS: OCTREOTIDE ACETATE 100 MCG/ML VL SUBCUT SCH ×3 (05:46→22:36)
[2022-04-26 06:21] LABS: Basophils # (auto) 0 10 ^3/uL (0-0.2); Eosinophils # (auto) 0 10 ^3/uL (0-0.8); Lymphocytes # (auto) 0.7 10 ^3/uL (0.4-5.4); Lymphocytes % (auto) 4.9 % (10.0-50.0); Monocytes # (auto) 1.7 10 ^3/uL (0-1.3)
[2022-04-26 06:23] LABS: Basophils % (auto) 0.2 % (0.0-2.0); Eosinophils % (auto) 0.1 % (0.0-7.0); Hematocrit 23.5 % (41.0-53.0); Hemoglobin 7.9 g/dL (13.5-17.5); Mean Corpuscular Hemoglobin 29.1 pg (28.0-32.0); Mean Corpuscular Hgb Conc. 33.6 g/dL (32.0-36.0); Mean Corpuscular Volume 86.6 fL (80.0-100.0); Neutrophils # (auto) 11.8 10 ^3/uL (1.6-8.6); Neutrophils % (auto) 82.8 % (37.0-80.0); Nucleated Red Blood Cells % 0.4 %; Red Blood Cells 2.71 10^6/uL (4.5-5.90); White Blood Cell 14.2 10^3/uL (4.4-10.8)
[2022-04-26 06:27] LABS: Red Cell Distribution Width 20.6 % (11.8-14.3)
[2022-04-26 06:40] LABS: Calcium 8.3 mg/dL (8.5-10.1); Potassium 4.7 mmol/L (3.5-5.1)
[2022-04-26 06:43] LABS: BUN/Creatinine Ratio 27.3; Bilirubin, Total 2.6 mg/dL (0.2-1.0)
[2022-04-26] MEDS: DOPamine 1600MCG/ML D5W 250 ML IV SCH (08:30)
[2022-04-26] MEDS: PANTOPRAZOLE 40 MG/10 ML VIAL INJ IV SCH ×2 (09:45→22:36)
[2022-04-26] MEDS: SODIUM CHLOR 0.9% PF (SALINE LOCK) 10ML VIAL/SYR IV SCH ×2 (09:45→22:36)
[2022-04-26] MEDS: PIPERACILLIN-TAZOB 3.375GM 100 ML IV SCH ×2 (09:47→22:36)
[2022-04-26] MEDS: ACCU-CHEK COMFORT CURVE STRIP VI SCH ×2 (09:47→22:00)
[2022-04-26] MEDS ORDERED: HEPARIN SODIUM (PORCINE) 5000 UNITS/ML 1ML VIAL ONE (14:21)
[2022-04-26] MEDS ORDERED: MIDAZOLAM HCL 2MG/2ML 2ml VIAL (1mg/ml) ONE (14:21)
[2022-04-26] MEDS ORDERED: fentaNYL CITRATE 100 MCG/2 ML VL ONE (14:21)
[2022-04-26] MEDS ORDERED: LIDOCAINE 2%HCL (LOCAL ANESTH.) INJ 10ml MDV ONE (14:31)
[2022-04-26] MEDS: DOCUSATE SOD 100 MG CAP PO SCH (22:00)
[2022-04-27] MEDS: LINEZOLID 600MG/300ML 300 ML IV SCH ×2 (04:44→16:00)
[2022-04-27 05:00] VITALS: BP 133/67
[2022-04-27] MEDS: OCTREOTIDE ACETATE 100 MCG/ML VL SUBCUT SCH ×3 (05:29→21:53)
[2022-04-27 05:52] LABS: Basophils # (auto) 0 10 ^3/uL (0-0.2); Basophils % (auto) 0.2 % (0.0-2.0); Eosinophils # (auto) 0 10 ^3/uL (0-0.8); Eosinophils % (auto) 0.4 % (0.0-7.0); Hematocrit 26.7 % (41.0-53.0); Hemoglobin 8.8 g/dL (13.5-17.5); Lymphocytes # (auto) 0.7 10 ^3/uL (0.4-5.4); Lymphocytes % (auto) 5.6 % (10.0-50.0); Mean Corpuscular Hemoglobin 28.7 pg (28.0-32.0); Mean Corpuscular Hgb Conc. 33.1 g/dL (32.0-36.0); Mean Corpuscular Volume 86.8 fL (80.0-100.0); Monocytes # (auto) 1.3 10 ^3/uL (0-1.3); Monocytes % (auto) 9.8 % (0.0-12.0); Nucleated Red Blood Cells % 0.3 %; Red Blood Cells 3.08 10^6/uL (4.5-5.90); White Blood Cell 13.1 10^3/uL (4.4-10.8)
[2022-04-27 06:00] LABS: Red Cell Distribution Width 20.7 % (11.8-14.3)
[2022-04-27 06:04] LABS: Calcium 7.9 mg/dL (8.5-10.1); Potassium 4.8 mmol/L (3.5-5.1)
[2022-04-27 06:09] LABS: BUN/Creatinine Ratio 27.5; Bilirubin, Total 2.2 mg/dL (0.2-1.0); Total Protein 5.9 g/dL (6.4-8.2)
[2022-04-27] MEDS ORDERED: SODIUM CHL 0.9% 1000 ML BAG XX ONE (07:00)
[2022-04-27 08:00] VITALS: BP 114/62
[2022-04-27] MEDS: DOPamine 1600MCG/ML D5W 250 ML IV SCH (08:30)
[2022-04-27] MEDS: ACCU-CHEK COMFORT CURVE STRIP VI SCH ×2 (10:00→22:23)
[2022-04-27] MEDS: SODIUM CHLOR 0.9% PF (SALINE LOCK) 10ML VIAL/SYR IV SCH ×2 (10:00→21:53)
[2022-04-27] MEDS: PANTOPRAZOLE 40 MG/10 ML VIAL INJ IV SCH ×2 (11:01→21:53)
[2022-04-27] MEDS: PIPERACILLIN-TAZOB 3.375GM 100 ML IV SCH ×2 (11:02→21:53)
[2022-04-27] MEDS: DOCUSATE SOD 100 MG CAP PO SCH ×2 (11:02→22:00)
[2022-04-27 12:00] VITALS: BP 116/67
[2022-04-27 16:00] VITALS: BP 118/66
[2022-04-27] MEDS ORDERED: EPOETIN ALFA-EPBX 10,000 UNIT/1ML VIAL SC ONE (21:00)
[2022-04-27] MEDS: MORPHINE SULFATE INJ 2 MG/ml SYRG IV PRN (21:55)
[2022-04-27 22:14] VITALS: BP 120/74
[2022-04-28] MEDS: MORPHINE SULFATE INJ 2 MG/ml SYRG IV PRN ×3 (02:19→15:00)
[2022-04-28] MEDS: LINEZOLID 600MG/300ML 300 ML IV SCH ×3 (04:16→16:49)
[2022-04-28 04:46] VITALS: BP 108/62
[2022-04-28] MEDS: OCTREOTIDE ACETATE 100 MCG/ML VL SUBCUT SCH ×3 (05:41→22:22)
[2022-04-28] MEDS: ALBUMIN 25% 100 ML IV PRN ×2 (06:40→08:27)
[2022-04-28 08:00] VITALS: BP 91/54
[2022-04-28] MEDS: DOPamine 1600MCG/ML D5W 250 ML IV SCH ×2 (08:30→15:00)
[2022-04-28] MEDS ORDERED: FUROSEMIDE 20 MG/2 ML VIAL IV ONE (09:00)
[2022-04-28] MEDS: DOCUSATE SOD 100 MG CAP PO SCH ×2 (09:48→22:00)
[2022-04-28] MEDS: PANTOPRAZOLE 40 MG/10 ML VIAL INJ IV SCH ×2 (09:48→22:31)
[2022-04-28] MEDS: SODIUM CHLOR 0.9% PF (SALINE LOCK) 10ML VIAL/SYR IV SCH ×2 (09:48→22:00)
[2022-04-28] MEDS: ACCU-CHEK COMFORT CURVE STRIP VI SCH ×2 (09:49→22:00)
[2022-04-28] MEDS: PIPERACILLIN-TAZOB 3.375GM 100 ML IV SCH ×3 (09:49→22:20)
[2022-04-28] MEDS ORDERED: DEXTROSE (50%) 50ML SYRG IV PRN (10:00)
[2022-04-28 12:00] VITALS: BP 115/63
[2022-04-28 12:11] LABS: Hemoglobin 8.2 g/dL (13.5-17.5)
[2022-04-28 12:12] LABS: Hematocrit 24.8 % (41.0-53.0)
[2022-04-28 16:00] VITALS: BP 107/60
[2022-04-28] MEDS ORDERED: LIDOCAINE 1% HCL (LOCAL ANESTH.) INJ 20ML MDV ID ONE (20:30)
[2022-04-28] MEDS ORDERED: EPOETIN ALFA-EPBX 10,000 UNIT/1ML VIAL SC ONE (21:00)
[2022-04-28 22:04] VITALS: BP 117/60
[2022-04-29] MEDS: LINEZOLID 600MG/300ML 300 ML IV SCH ×2 (04:51→17:32)
[2022-04-29 05:36] VITALS: BP 87/50
[2022-04-29] MEDS: OCTREOTIDE ACETATE 100 MCG/ML VL SUBCUT SCH ×3 (05:58→21:36)
[2022-04-29 06:32] LABS: Hematocrit 18.3 % (41.0-53.0)
[2022-04-29] MEDS: ALBUMIN 25% 100 ML IV PRN (06:54)
[2022-04-29 07:14] LABS: Hemoglobin 6.3 g/dL (13.5-17.5)
[2022-04-29 07:20] LABS: % Iron Saturation 97.1 % (20-55)
[2022-04-29 09:08] VITALS: BP 97/51
[2022-04-29] MEDS: DOCUSATE SOD 100 MG CAP PO SCH ×2 (10:00→21:36)
[2022-04-29] MEDS: PIPERACILLIN-TAZOB 3.375GM 100 ML IV SCH ×2 (10:28→21:35)
[2022-04-29] MEDS: PANTOPRAZOLE 40 MG/10 ML VIAL INJ IV SCH ×2 (10:28→21:35)
[2022-04-29] MEDS: SODIUM CHLOR 0.9% PF (SALINE LOCK) 10ML VIAL/SYR IV SCH ×2 (10:28→21:36)
[2022-04-29] MEDS: ACCU-CHEK COMFORT CURVE STRIP VI SCH ×2 (10:29→21:36)
[2022-04-29] MEDS: MORPHINE SULFATE INJ 2 MG/ml SYRG IV PRN ×3 (10:30→20:18)
[2022-04-29 12:47] VITALS: BP 107/41
[2022-04-29 15:25] LABS: Hematocrit 17.8 % (41.0-53.0)
[2022-04-29 16:50] VITALS: BP 93/37
[2022-04-29 22:10] VITALS: BP 97/51
[2022-04-30] MEDS: MORPHINE SULFATE INJ 2 MG/ml SYRG IV PRN ×5 (02:10→17:43)
[2022-04-30] MEDS: LINEZOLID 600MG/300ML 300 ML IV SCH ×2 (04:17→16:35)
[2022-04-30 05:07] VITALS: BP 88/45
[2022-04-30] MEDS: OCTREOTIDE ACETATE 100 MCG/ML VL SUBCUT SCH ×3 (05:59→22:28)
[2022-04-30 07:18] LABS: Basophils # (auto) 0 10 ^3/uL (0-0.2); Eosinophils # (auto) 0 10 ^3/uL (0-0.8); Eosinophils % (auto) 0.1 % (0.0-7.0); Hematocrit 17.9 % (41.0-53.0); Lymphocytes # (auto) 0.7 10 ^3/uL (0.4-5.4); Lymphocytes % (auto) 6.8 % (10.0-50.0); Mean Corpuscular Hemoglobin 28.9 pg (28.0-32.0); Mean Corpuscular Hgb Conc. 33.5 g/dL (32.0-36.0); Mean Corpuscular Volume 86.3 fL (80.0-100.0); Monocytes # (auto) 0.6 10 ^3/uL (0-1.3); Neutrophils # (auto) 8.5 10 ^3/uL (1.6-8.6); Neutrophils % (auto) 87.1 % (37.0-80.0); Nucleated Red Blood Cells % 0.5 %; Red Blood Cells 2.08 10^6/uL (4.5-5.90); White Blood Cell 9.8 10^3/uL (4.4-10.8)
[2022-04-30 07:32] LABS: Red Cell Distribution Width 20.4 % (11.8-14.3)
[2022-04-30 07:41] LABS: % Iron Saturation 91.9 % (20-55)
[2022-04-30 07:46] LABS: Calcium 7.3 mg/dL (8.5-10.1)
[2022-04-30 07:51] LABS: BUN/Creatinine Ratio 25.2; Pre Albumin 7.1 mg/dL (20.0-40.0)
[2022-04-30 08:09] LABS: Potassium 5.6 mmol/L (3.5-5.1)
[2022-04-30 08:50] VITALS: BP 103/51
[2022-04-30] MEDS: PANTOPRAZOLE 40 MG/10 ML VIAL INJ IV SCH ×2 (09:49→22:27)
[2022-04-30] MEDS: ACCU-CHEK COMFORT CURVE STRIP VI SCH ×2 (09:49→22:28)
[2022-04-30] MEDS: SODIUM CHLOR 0.9% PF (SALINE LOCK) 10ML VIAL/SYR IV SCH ×2 (09:49→22:27)
[2022-04-30] MEDS: DOPamine 1600MCG/ML D5W 250 ML IV SCH (09:49)
[2022-04-30] MEDS: PIPERACILLIN-TAZOB 3.375GM 100 ML IV SCH ×2 (09:49→22:27)
[2022-04-30] MEDS: DOCUSATE SOD 100 MG CAP PO SCH ×2 (09:49→22:00)
[2022-04-30] MEDS ORDERED: SODIUM ZIRCONIUM CYCL 10 GM PAK PO ONE (11:00)
[2022-04-30] MEDS ORDERED: CALCIUM GLUC 1,000mg/50ml-NS 50 ML IV ONE (11:00)
[2022-04-30] MEDS ORDERED: SODIUM BICARBONATE 8.4% INJ 50ML SYRINGE IV ONE (11:00)
[2022-04-30] MEDS ORDERED: DEXTROSE (50%) 50ML SYRG IV ONE (11:00)
[2022-04-30] MEDS ORDERED: InsuLIN REG 1unit/0.01ml Soln (100units/ml) IV ONE (11:00)
[2022-04-30] MEDS ORDERED: SODIUM CHL 0.9% 1000 ML BAG XX ONE (11:00)
[2022-04-30] MEDS ORDERED: ALBUTEROL SULF 2.5 MG/0.5ML(0.5%) NEB SOLN NEB ONE (11:00)
[2022-04-30 11:03] LABS: Ferritin 1464.4 ng/mL (10-322)
[2022-04-30 11:04] LABS: Folate (Folic Acid) 8.25 ng/mL (5.38-24)
[2022-04-30] MEDS ORDERED: IRON SUCROSE COMPLEX 200 MG in SODIUM CHL 0.9% 100 ML IV SCH (12:00)
[2022-04-30 13:00] VITALS: BP 107/56
[2022-04-30] MEDS: SODIUM ZIRCONIUM CYCL 10 GM PAK PO SCH ×2 (14:00→22:28)
[2022-04-30] MEDS: SODIUM FERR GLUC 62.5MG/5ML 125 MG in SODIUM CHL 0.9% 100 ML IV SCH (14:08)
[2022-04-30 16:50] VITALS: BP 94/48
[2022-04-30] MEDS: ALBUMIN 25% 100 ML IV PRN (20:37)
[2022-04-30] MEDS ORDERED: EPOETIN ALFA-EPBX 4,000 UNIT/ML VIAL SC ONE (21:00)
[2022-04-30 22:00] VITALS: BP 93/39
[2022-05-01] VITALS (10 sets, daily range): BP systolic 69–93; BP diastolic 26–49
[2022-05-01] MEDS: LINEZOLID 600MG/300ML 300 ML IV SCH ×2 (03:11→16:25)
[2022-05-01] MEDS: OCTREOTIDE ACETATE 100 MCG/ML VL SUBCUT SCH ×3 (05:35→21:53)
[2022-05-01] MEDS: SODIUM ZIRCONIUM CYCL 10 GM PAK PO SCH ×3 (05:35→21:53)
[2022-05-01 06:48] LABS: Basophils # (auto) 0 10 ^3/uL (0-0.2); Basophils % (auto) 0.1 % (0.0-2.0); Eosinophils # (auto) 0 10 ^3/uL (0-0.8); Lymphocytes # (auto) 0.4 10 ^3/uL (0.4-5.4); Monocytes # (auto) 0.4 10 ^3/uL (0-1.3); Red Blood Cells 1.79 10^6/uL (4.5-5.90)
[2022-05-01 06:50] LABS: Albumin 3.1 g/dL (3.4-5.0); Calcium 7.6 mg/dL (8.5-10.1); Potassium 5.4 mmol/L (3.5-5.1)
[2022-05-01 06:52] LABS: Eosinophils % (auto) 0.1 % (0.0-7.0); Hematocrit 15.8 % (41.0-53.0); Lymphocytes % (auto) 4.1 % (10.0-50.0); Mean Corpuscular Hemoglobin 29.8 pg (28.0-32.0); Mean Corpuscular Hgb Conc. 33.6 g/dL (32.0-36.0); Mean Corpuscular Volume 88.5 fL (80.0-100.0); Monocytes % (auto) 4.4 % (0.0-12.0); Neutrophils % (auto) 91.3 % (37.0-80.0); Nucleated Red Blood Cells % 0.4 %; White Blood Cell 8.7 10^3/uL (4.4-10.8)
[2022-05-01 06:56] LABS: BUN/Creatinine Ratio 23.2; Bilirubin, Total 3.4 mg/dL (0.2-1.0); Pre Albumin 6.9 mg/dL (20.0-40.0); Total Protein 5.3 g/dL (6.4-8.2)
[2022-05-01 07:05] LABS: Thyroid Stimulating Hormone 0.46 uIU/mL (0.358-3.74)
[2022-05-01 07:40] LABS: Red Cell Distribution Width 20.6 % (11.8-14.3)
[2022-05-01 07:44] LABS: Hemoglobin 5.3 g/dL (13.5-17.5)
[2022-05-01] MEDS ORDERED: SODIUM CHLORIDE 0.9% 1,000 ML IV ONE (08:45)
[2022-05-01] MEDS ORDERED: NOREPINEPHRINE 8 MG/250ML KIT 250 ML IV ONE (09:11)
[2022-05-01] MEDS ORDERED: ALBUMIN 25% 50 ML IV ONE (09:15)
[2022-05-01] MEDS: SODIUM CHLOR 0.9% PF (SALINE LOCK) 10ML VIAL/SYR IV SCH ×2 (10:00→21:52)
[2022-05-01] MEDS: DOCUSATE SOD 100 MG CAP PO SCH ×2 (10:00→21:53)
[2022-05-01] MEDS: ACCU-CHEK COMFORT CURVE STRIP VI SCH ×2 (11:02→22:56)
[2022-05-01] MEDS: PIPERACILLIN-TAZOB 3.375GM 100 ML IV SCH ×2 (11:09→21:52)
[2022-05-01] MEDS: PANTOPRAZOLE 40 MG/10 ML VIAL INJ IV SCH ×2 (11:09→21:52)
[2022-05-01 12:30] LABS: INR 1.62 (0.9-1.15); Partial Thromboplastin Time 51.8 sec (24.6-33.4)
[2022-05-01] MEDS: SODIUM FERR GLUC 62.5MG/5ML 125 MG in SODIUM CHL 0.9% 100 ML IV SCH (13:30)
[2022-05-01] MEDS: MORPHINE SULFATE INJ 2 MG/ml SYRG IV PRN ×2 (13:30→18:37)
== END 2022-05-02 02:52 | DRG 207 ==
LOC: EEVIPCON 19:39 → ER 19:39 → EDUNIT# 19:39 → OVERFLOW 04-08 06:57 → ICU CENTRL 04-08 22:29 → TELE-WESTW 04-22 16:10
PROVIDERS: ADMIT Internal Medicine; ATTEND Internal Medicine
PROC: 30233N1 Transfusion of Nonautologous Red Blood Cells into Peripheral Vein, Percutaneous Approach (ICD-10-PCS; 2022-04-07)
PROC: 30233R1 Transfusion of Nonautologous Platelets into Peripheral Vein, Percutaneous Approach (ICD-10-PCS; 2022-04-08)
PROC: 5A1955Z Respiratory Ventilation, Greater than 96 Consecutive Hours (ICD-10-PCS; 2022-04-08)
PROC: 0BH17EZ Insertion of Endotracheal Airway into Trachea, Via Natural or Artificial Opening (ICD-10-PCS; 2022-04-08)
PROC: 30233K1 Transfusion of Nonautologous Frozen Plasma into Peripheral Vein, Percutaneous Approach (ICD-10-PCS; 2022-04-08)
PROC: 06L38CZ Occlusion of Esophageal Vein with Extraluminal Device, Via Natural or Artificial Opening Endoscopic (ICD-10-PCS; 2022-04-08)
PROC: 0W9G3ZZ Drainage of Peritoneal Cavity, Percutaneous Approach (ICD-10-PCS; 2022-04-08)
PROC: 0W9G3ZZ Drainage of Peritoneal Cavity, Percutaneous Approach (ICD-10-PCS; 2022-04-12)
PROC: 0W9G3ZZ Drainage of Peritoneal Cavity, Percutaneous Approach (ICD-10-PCS; 2022-04-16)
PROC: 0W9G3ZZ Drainage of Peritoneal Cavity, Percutaneous Approach (ICD-10-PCS; 2022-04-18)
PROC: 02HV33Z Insertion of Infusion Device into Superior Vena Cava, Percutaneous Approach (ICD-10-PCS; 2022-04-21)
PROC: B548ZZA Ultrasonography of Superior Vena Cava, Guidance (ICD-10-PCS; 2022-04-21)
PROC: 5A1D70Z Performance of Urinary Filtration, Intermittent, Less than 6 Hours Per Day (ICD-10-PCS; 2022-04-21)
PROC: 5A1D70Z Performance of Urinary Filtration, Intermittent, Less than 6 Hours Per Day (ICD-10-PCS; 2022-04-23)
PROC: 0W9G3ZZ Drainage of Peritoneal Cavity, Percutaneous Approach (ICD-10-PCS; 2022-04-24)
PROC: 5A1D70Z Performance of Urinary Filtration, Intermittent, Less than 6 Hours Per Day (ICD-10-PCS; 2022-04-25)
PROC: 0JH63XZ Insertion of Tunneled Vascular Access Device into Chest Subcutaneous Tissue and Fascia, Percutaneous Approach (ICD-10-PCS; principal; 2022-04-26)
PROC: 02HV33Z Insertion of Infusion Device into Superior Vena Cava, Percutaneous Approach (ICD-10-PCS; 2022-04-26)
PROC: B5181ZA Fluoroscopy of Superior Vena Cava using Low Osmolar Contrast, Guidance (ICD-10-PCS; 2022-04-26)
PROC: B548ZZA Ultrasonography of Superior Vena Cava, Guidance (ICD-10-PCS; 2022-04-26)
PROC: 0W9G3ZZ Drainage of Peritoneal Cavity, Percutaneous Approach (ICD-10-PCS; 2022-04-28)
PROC: 5A1D70Z Performance of Urinary Filtration, Intermittent, Less than 6 Hours Per Day (ICD-10-PCS; 2022-04-28)
PROC: 5A1D70Z Performance of Urinary Filtration, Intermittent, Less than 6 Hours Per Day (ICD-10-PCS; 2022-04-30)
DX: J18.9 Pneumonia, unspecified organism (principal); J96.01 Acute respiratory failure with hypoxia; I85.01 Esophageal varices with bleeding; N17.0 Acute kidney failure with tubular necrosis; N18.6 End stage renal disease; K76.6 Portal hypertension; R18.8 Other ascites; E87.1 Hypo-osmolality and hyponatremia; E87.20 Acidosis, unspecified; I13.2 Hypertensive heart and chronic kidney disease with heart failure and with stage 5 chronic kidney disease, or end stage renal disease; Z66 Do not resuscitate; Z20.822 Contact with and (suspected) exposure to COVID-19; R57.8 Other shock; E88.09 Other disorders of plasma-protein metabolism, not elsewhere classified; K74.60 Unspecified cirrhosis of liver; E86.0 Dehydration; K31.89 Other diseases of stomach and duodenum; D50.0 Iron deficiency anemia secondary to blood loss (chronic); D69.6 Thrombocytopenia, unspecified; E11.22 Type 2 diabetes mellitus with diabetic chronic kidney disease; E83.39 Other disorders of phosphorus metabolism; E83.51 Hypocalcemia; E87.5 Hyperkalemia; E87.6 Hypokalemia; F17.200 Nicotine dependence, unspecified, uncomplicated; I50.9 Heart failure, unspecified; K72.10 Chronic hepatic failure without coma; Z87.11 Personal history of peptic ulcer disease; Z99.2 Dependence on renal dialysis
CPT/HCPCS: 36415; 36558; 36569; 36600; 43244; 49083; 71045; 71250; 74176; 76705; 76775; 76942; 77001; 80048; 80053; 81001; 82040; 82140; 82306; 82570; 82607; 82728; 82746; 82805; 82962; 83010; 83540; 83550; 83615; 83735; 83880; 83970; 83986; 84100; 84132; 84156; 84300; 84439; 84443; 84478; 85007; 85014; 85018; 85025; 85027; 85610; 85730; 86850; 86900; 86901; 86920; 86922; 87040; 87070; 87077; 87081; 87086; 87186; 87205; 87340; 87426; 89051; 90935; 92507; 92610; 93005; 94003; 94640; 96365; 96366; 96367; 96375; 96376; 97163; 99152; 99291; C9113; G0378; J0696; J1642; J1756; J1815; J2001; J2250; J2405; J2543; J2704; J3430; J3480; J7060; J7131; P9047